=== PATIENT | male | born 1975 | race Hispanic/Latino ===

== ENCOUNTER 2017-02-23 19:57 | Emergency (ER) | payer OTHER ==
[2017-02-23 20:15] VITALS: TEMP 97.7; BMI 30.7
[2017-02-23] MEDS ORDERED: HYDROmorphone 1 mg/ml ISec IM STA (21:06)
[2017-02-23] MEDS ORDERED: HYDROmorphone 2 mg/ml ISec IM STA (21:08)
--- NOTE | 2017-02-23 21:31 | ED PDOC ---
Arrival/HPI - General Chief Complaint: Back Pain Time Seen by Provider: 02/23/17 20:41 Historian: Patient - History of Present Illness Narrative History of Present Illness (Text): 02/23/17 20:41 A 41 year old male, whose past medical history includes chronic neck pain, and chronic numbness to the bilateral upper extremities, presents to the emergency department complaining of "unbearably" neck pain for the past week. He notes he has been taking Oxycodone 30mg 4 times a day with no relief. He reports some numbness to the right side of the face for the past few days. Patient had a chronic neck injury which required the patient to get spinal fusion surgery from C3-C5 in 2011. Patient is also on Coumadin due to Aortic aneurysm and valve surgery in 2013. Patient notes an elevated blood pressure but denies any headache, dizziness, chest pain, shortness of breath, chest palpation, or other complaints at this time. PMD: Dr. Daquan Avelar Time/Duration: 1 week Symptom Onset: Sudden Symptom Course: Unchanged Quality: Other Activities at Onset: Rest Context: Home Past Medical History - Provider Review Nursing Documentation Reviewed: Yes - Infectious Disease Hx of Infectious Diseases: None - Cardiac Hx Cardiac Disorders: Yes Hx Hypertension: Yes Other/Comment: Oper Heart Surgery. Bicup. Aortic Valve Surgery - Pulmonary Hx Respiratory Disorders: No - Neurological Hx Neurological Disorder: Yes Other/Comment: pt had cervical neck fusion, neck still tingles, arms go numb, can't lie flat. Spine Fused C3 to C5 - HEENT Hx HEENT Disorder: No - Renal Hx Renal Disorder: No - Endocrine/Metabolic Hx Endocrine Disorders: No - Hematological/Oncological Hx Blood Disorders: Yes Other/Comment: lyme disease 2x's over the past 3 years - Integumentary Hx Dermatological Disorder: No - Musculoskeletal/Rheumatological Hx Musculoskeletal Disorders: Yes Hx Falls: Yes - Gastrointestinal Hx Gastrointestinal Disorders: No - Genitourinary/Gynecological Hx Genitourinary Disorders: No - Psychiatric Hx Psychophysiologic Disorder: No Hx Emotional Abuse: No Hx Physical Abuse: No Hx Substance Use: No - Surgical History Hx Open Heart Surgery: Yes (AAA) Hx Orthopedic Surgery: Yes (cervical neck fusion 05/2012) Hx Valve Replacement: Yes - Anesthesia Hx Anesthesia: Yes Hx Anesthesia Reactions: No Hx Malignant Hyperthermia: No - Suicidal Assessment Feels Threatened In Home Enviroment: No Family/Social History - Physician Review Nursing Documentation Reviewed: Yes Family/Social History: Unknown Family HX Smoking Status: Current Some Days Smoker Hx Alcohol Use: No Hx Substance Use: No Hx Substance Use Treatment: No Allergies/Home Meds Allergies/Adverse Reactions: Allergies metoclopramide HCl [From Reglan] Adverse Reaction (Verified 02/23/17 21:23) SHORTNESS OF BREATH Penicillins Adverse Reaction (Verified 02/23/17 21:23) ANAPHYLAXIS pregabalin [From Lyrica] Adverse Reaction (Verified 02/23/17 21:23) ITCHING valsartan [From Diovan] Adverse Reaction (Verified 02/23/17 21:23) SWELLING Home Medications: Home Meds Medication Instructions Recorded Confirmed Metoprolol Tartrate [Lopressor] 50 mg PO BID 07/11/16 07/11/16 Warfarin [Coumadin] 11 mg PO .6PM 07/11/16 07/11/16 oxyCODONE [oxyCODONE Immediate 30 mg PO QID PRN 07/11/16 07/11/16 Release Tab] Review of Systems - Physician Review All systems were reviewed & negative as marked: Yes - Review of Systems Respiratory: absent: SOB Cardiovascular: absent: Chest Pain, Palpitations Musculoskeletal: Neck Pain Neurological: Other (numbess to the bilateral upper extremities and right side of the face). absent: Headache, Dizziness Physical Exam Vital Signs Reviewed: Yes Vital Signs Temp Pulse Resp BP Pulse Ox 02/23/17 22:30 81 16 143/88 98 02/23/17 20:14 97.7 F 96 H 18 188/99 H 97 Temperature: Afebrile Blood Pressure: Normal Pulse: Regular Respiratory Rate: Normal Appearance: Positive for: Well-Appearing, Non-Toxic, Comfortable (sitting comfortable in bed) Pain Distress: Mild Mental Status: Positive for: Alert and Oriented X 3 - Systems Exam Head: Present: Atraumatic, Normocephalic Pupils: Present: PERRL Extroacular Muscles: Present: EOMI Conjunctiva: Present: Normal Mouth: Present: Moist Mucous Membranes Neck: Present: Normal Range of Motion, MIDLINE TENDERNESS Respiratory/Chest: Present: Clear to Auscultation, Good Air Exchange. No: Respiratory Distress, Accessory Muscle Use Cardiovascular: Present: Regular Rate and Rhythm, Normal S1, S2. No: Murmurs Abdomen: Present: Normal Bowel Sounds. No: Tenderness, Distention, Peritoneal Signs Back: Present: Normal Inspection Upper Extremity: Present: Normal Inspection. No: Cyanosis, Edema Lower Extremity: Present: Normal Inspection. No: Edema Neurological: Present: GCS=15, CN II-XII Intact, Speech Normal, Motor Func Grossly Intact, Normal Sensory Function Skin: Present: Warm, Dry, Normal Color. No: Rashes Psychiatric: Present: Alert, Oriented x 3, Normal Insight, Normal Concentration Medical Decision Making ED Course and Treatment: 02/23/17 20:41 Impression: A 41 year old male with acute on chronic neck pain. Differential Diagnosis include but are not limited to: acute on chronic neck pain Plan: -- Cervical Spine and Lateral X-ray -- Dilaudid, Flexeril and Zofran -- Reassess and disposition Prior Visits: Notes and results from previous visits were reviewed. The patient last presented to the emergency department on 07/11/16 for evaluation after a syncopal episode. Progress Notes: XR C spine: mild DJD, (+) spinal fusion noted, no fracture, no dislocation, as read by PA VS BP 143/88 P 81 O2sat 98%RA On reevaluation, patient is sitting comfortably in bed in no acute distress, reports mild improvement of pain, denies any headache, dizziness, chest pain, shortness of breath or any focal neurologic deficits at this time. Repeat neuro exam shows no focal findings. Patient medicated with dose of Toradol IM. Based on history, exam and diagnostic results plan will be for outpatient follow -up with PMD. Patient states he fully agrees with and understands discharge instructions. States that he agrees with the plan and disposition. Verbalized and repeated discharge instructions and plan. I have given the patient opportunity to ask any additional questions. Follow up with primary care physician in 1-2 days without fail. Return to the emergency room at any time for any new or worsening symptoms. - RAD Interpretation Radiology Orders: 02/23/17 21:06 CERVICAL SPINE AP & LATERAL [RAD] Stat - Medication Orders Current Medication Orders: Discontinued Medications Cyclobenzaprine HCl (Flexeril) 10 mg PO STAT STA Stop: 02/23/17 21:07 Last Admin: 02/23/17 21:37 Dose: 10 mg Hydromorphone HCl (Dilaudid) 2 mg IM STAT STA Stop: 02/23/17 21:09 Last Admin: 02/23/17 21:37 Dose: 2 mg Ketorolac Tromethamine (Toradol) 60 mg IM STAT STA Stop: 02/23/17 23:10 Last Admin: 02/23/17 23:22 Dose: 60 mg Ondansetron HCl (Zofran Odt) 4 mg PO STAT STA Stop: 02/23/17 21:07 Last Admin: 02/23/17 21:37 Dose: 4 mg - PA / ENERGY EFFICI[employer]Y FINANCE MANAGER / Resident Statement MD/DO has reviewed & agrees with the documentation as recorded. - Scribe Statement The provider has reviewed the documentation as recorded by the Scribe Jennifer Bo Provider Scribe Attestation: All medical record entries made by the Scribe were at my direction and personally dictated by me. I have reviewed the chart and agree that the record accurately reflects my personal performance of the history, physical exam, medical decision making, and the department course for this patient. I have also personally directed, reviewed, and agree with the discharge instructions and disposition. Disposition/Present on Arrival - Present on Arrival Any Indicators Present on Arrival: No History of DVT/PE: No History of Uncontrolled Diabetes: No Urinary Catheter: No History of Decub. Ulcer: No History Surgical Site Infection Following: None - Disposition Have Diagnosis and Disposition been Completed?: Yes Diagnosis: Chronic neck pain Disposition: HOME/ ROUTINE Disposition Time: 23:00 Patient Plan: Discharge Patient Problems: Current Active Problems Problem Status Onset Chronic neck pain Acute Condition: IMPROVED Discharge Instructions (ExitCare): Chronic Pain (ED) Print Language: EMIRATI Additional Instructions: Thank you for letting us take care of you today. You were treated for chronic neck pain. The emergency medical care you received today was directed at your acute symptoms. It may take several days for your symptoms to resolve. Return to the Emergency Department if your symptoms worsen, do not improve, or if you have any other problems. Please contact your doctor in 2 days for re-evaluation and follow up / or call one of the physicians. Bring any paperwork you were given at discharge with you along with any medications you are taking to your follow up visit. Our treatment cannot replace ongoing medical care by a primary care provider (PCP) outside of the emergency department. Thank you for allowing the [facility] team to be part of your care today. Referrals: [facility], [Primary Care Provider] - Follow up with primary Forms: WORK NOTE
[2017-02-23 22:39] VITALS: BP 143/88; PULSE 81; RESP 16; O2SAT 98
--- NOTE | 2017-02-24 10:58 | RAD ---
PROCEDURE: Cervical Spine Radiographs. HISTORY: Pain. COMPARISON: None. FINDINGS: BONES: Alignment maintained. No fracture. Dens Intact. DISC SPACES: There has been fusion at C4-5 and C5-6. SOFT TISSUES: Normal. No prevertebral soft tissue swelling. OTHER FINDINGS: None. IMPRESSION: No acute findings
== END 2017-02-24 00:01 | disposition home or self-care (01) ==
LOC: ED 19:57
DX: M54.2 Cervicalgia (principal); G89.29 Other chronic pain; I10 Essential (primary) hypertension; Z72.0 Tobacco use
CPT/HCPCS: 72040; 96372; 99282; J1170; J1885

== ENCOUNTER 2017-03-20 11:25 | Inpatient (IN) | payer OTHER ==
[2017-03-20 11:28] VITALS: BMI 29.9
--- NOTE | 2017-03-20 12:06 | ED PDOC ---
Arrival/HPI - General Chief Complaint: Fever Time Seen by Provider: 03/20/17 11:37 Historian: Patient - History of Present Illness Narrative History of Present Illness (Text): 03/20/17 12:11 A 41 year old male, whose past medical history includes aortic valve replacement (in 2013) and aortic aneurysm repair, presents to the emergency department complaining of a fever up to 103, sweating and chills for the past two days. Patient reports taking Advil. There is no clear source of fever. Patient takes Coumadin and Oxycodone daily for pain. Reports he had a dental abscess 3 months ago, which resolved with antibiotics. Denies any recent procedures. Patient denies any cough, shortness of breath, chest pain, diarrhea , dysuria, sore throat or any other complaints at this time. Patient also denies any drug use. Time/Duration: Other (2 days) Symptom Onset: Sudden Symptom Course: Unchanged Activities at Onset: Rest Context: Home Past Medical History - Provider Review Nursing Documentation Reviewed: Yes - Infectious Disease Hx of Infectious Diseases: None - Cardiac Hx Cardiac Disorders: Yes Hx Hypertension: Yes Other/Comment: Open Heart Surgery. Bicup. Aortic Valve Surgery - Pulmonary Hx Respiratory Disorders: No - Neurological Hx Neurological Disorder: Yes Other/Comment: pt had cervical neck fusion, neck still tingles, arms go numb, can't lie flat. Spine Fused C3 to C5 - HEENT Hx HEENT Disorder: No - Renal Hx Renal Disorder: No - Endocrine/Metabolic Hx Endocrine Disorders: No - Hematological/Oncological Hx Blood Disorders: Yes Other/Comment: lyme disease 2x's over the past 3 years - Integumentary Hx Dermatological Disorder: No - Musculoskeletal/Rheumatological Hx Musculoskeletal Disorders: Yes Hx Falls: Yes - Gastrointestinal Hx Gastrointestinal Disorders: No - Genitourinary/Gynecological Hx Genitourinary Disorders: No - Psychiatric Hx Psychophysiologic Disorder: No Hx Emotional Abuse: No Hx Physical Abuse: No Hx Substance Use: No - Surgical History Hx Open Heart Surgery: Yes (AAA) Hx Orthopedic Surgery: Yes (cervical neck fusion 05/2012) Hx Valve Replacement: Yes - Anesthesia Hx Anesthesia: Yes Hx Anesthesia Reactions: No Hx Malignant Hyperthermia: No - Suicidal Assessment Feels Threatened In Home Enviroment: No Family/Social History - Physician Review Nursing Documentation Reviewed: Yes Family/Social History: No Known Family HX Smoking Status: Light Smoker < 10 Cigarettes Daily Hx Alcohol Use: No Hx Substance Use: No Hx Substance Use Treatment: No Allergies/Home Meds Allergies/Adverse Reactions: Allergies metoclopramide HCl [From Reglan] Adverse Reaction (Verified 03/20/17 11:28) SHORTNESS OF BREATH Penicillins Adverse Reaction (Verified 03/20/17 11:28) ANAPHYLAXIS pregabalin [From Lyrica] Adverse Reaction (Verified 03/20/17 11:28) ITCHING valsartan [From Diovan] Adverse Reaction (Verified 03/20/17 11:28) SWELLING Home Medications: Home Meds Medication Instructions Recorded Confirmed Metoprolol Tartrate [Lopressor] 50 mg PO BID 07/11/16 03/20/17 Warfarin [Coumadin] 10 mg PO DAILY 07/11/16 03/20/17 oxyCODONE [oxyCODONE Immediate 30 mg PO QID PRN 07/11/16 03/20/17 Release Tab] Review of Systems - Physician Review All systems were reviewed & negative as marked: Yes - Review of Systems Constitutional: Fevers, Other (chills) ENT: absent: Sore Throat Respiratory: absent: SOB, Cough Cardiovascular: absent: Chest Pain Gastrointestinal: absent: Diarrhea Genitourinary Male: absent: Dysuria Endocrine: Diaphoresis Physical Exam Vital Signs Reviewed: Yes Vital Signs Temp Pulse Resp BP Pulse Ox 03/20/17 11:32 98.0 F 98 H 19 110/73 95 Temperature: Afebrile Blood Pressure: Normal Pulse: Regular Respiratory Rate: Normal Appearance: Positive for: Well-Appearing, Non-Toxic, Comfortable, Other ( diaphoretic) Pain Distress: None Mental Status: Positive for: Alert and Oriented X 3 - Systems Exam Head: Present: Atraumatic, Normocephalic Pupils: Present: PERRL Extroacular Muscles: Present: EOMI Conjunctiva: Present: Normal Mouth: Present: Moist Mucous Membranes Neck: Present: Normal Range of Motion Respiratory/Chest: Present: Clear to Auscultation, Good Air Exchange. No: Respiratory Distress, Accessory Muscle Use Cardiovascular: Present: Regular Rate and Rhythm, Normal S1, S2, Other (cardiac audible click ). No: Murmurs Abdomen: Present: Normal Bowel Sounds. No: Tenderness, Distention, Peritoneal Signs Back: Present: Normal Inspection Upper Extremity: Present: Normal Inspection. No: Cyanosis, Edema Lower Extremity: Present: Normal Inspection. No: Edema Neurological: Present: GCS=15, CN II-XII Intact, Speech Normal Skin: Present: Warm, Dry, Normal Color. No: Rashes Psychiatric: Present: Alert, Oriented x 3, Normal Insight, Normal Concentration Medical Decision Making ED Course and Treatment: 03/20/17 12:45 EKG: Ordered, reviewed, and independently interpreted the EKG. Rate : 87 BPM Rhythm : NSR Interpretation : Normal axis, Normal intervals, No STEMI Comparison : Appears similar to prior EKG from 07/11/16 chest xray Creator : Anna Miller MD 03/20/2017 12:49 IMPRESSION: No focal consolidation, significant pleural effusion, or definite pneumothorax identified. 03/20/17 13:[address] Majano, who will admit patient. She requests patient be given Azactam and Vancomycin. Abdomen US Creator : Anna Miller MD 03/20/2017 14:29 FINDINGS: LIVER: Measures 16.5 cm in sagittal dimension. Echogenic liver may be seen in setting of hepatic parenchymal disease or fatty infiltration. No focal hepatic mass identified. The main portal vein appears patent with normal directional flow. No intrahepatic bile duct dilatation. GALLBLADDER: No gallstones. No gallbladder wall thickening. Negative sonographic Matamoros's sign as assessed by the technical intern. COMMON BILE DUCT: Measures 6 mm. No stones. No dilatation. PANCREAS: Not well visualized. RIGHT KIDNEY: Measures 11.4 x 4.3 x 5.5cm. No obstructing calculus or hydronephrosis identified. LEFT KIDNEY: Measures 11.3 x 5.6 x 5.5cm. No obstructing calculus or hydronephrosis identified. SPLEEN: Measures approximately 11.3 cm. AORTA: Limited views appear unremarkable. IVC: Limited views appear unremarkable. IMPRESSION: Echogenic liver may be seen in setting of hepatic parenchymal disease or fatty infiltration. - Lab Interpretations Microbiology Results: Microbiology Results 03/20/17 12:00 Blood-Venous S.aureus & Coag-Neg Staph PNA FISH - Final 03/20/17 12:00 Blood-Venous Blood Culture - Final Streptococcus Pneumoniae 03/20/17 12:00 Blood-Venous Gram Stain - Final 03/20/17 12:20 Blood-Venous Blood Culture - Final Streptococcus Pneumoniae 03/20/17 12:20 Blood-Venous Gram Stain - Final 03/20/17 13:47 Urine Urine Culture - Final No Growth (<1,000 CFU/ML) Lab Results: 03/21/17 06:30 03/21/17 06:30 Lab Results 03/21/17 06:30: Sodium 139, Chloride 102, Potassium 3.9, Carbon Dioxide 30, Anion Gap 11, BUN 18, Creatinine 1.0, Est GFR ( Amer) > 60, Est GFR (Non- Af Amer) > 60, Random Glucose 85, Calcium 9.0, Total Bilirubin 0.7, AST 44, ALT 66 H, Alkaline Phosphatase 138 H, Total Protein 7.0, Albumin 3.5, Globulin 3.5, Albumin/Globulin Ratio 1.0 L 03/21/17 06:30: WBC 10.5, RBC 3.64, Hgb 10.4 L, Hct 31.9 L, MCV 87.6, MCH 28.6, MCHC 32.6, RDW 14.9 H, Plt Count 291, MPV 10.4, Gran % 69.9 H, Lymph % (Auto) 16.1 L, Tillman % (Auto) 11.8 H, Eos % (Auto) 1.9, Baso % (Auto) 0.3, Gran # 7.35 H , Lymph # 1.7, Tillman # 1.2 H, Eos # 0.2, Baso # 0.03 03/20/17 14:20: C-React Prot High Sens > 15.00 H 03/20/17 14:20: ESR 62 H 03/20/17 13:47: Urine Color Yellow, Urine Appearance Clear, Urine pH 6.0, Ur Specific [place] >= 1.030, Urine Protein 100 H, Urine Glucose (UA) Negative, Urine Ketones Negative, Urine Blood Small H, Urine Nitrate Negative, Urine Bilirubin Small H, Urine Urobilinogen 1.0 H, Ur Leukocyte Esterase Negative, Urine RBC 5 - 10, Urine WBC 0 - 2, Ur Epithelial Cells 0 - 2, Amorphous Sediment Few, Urine Bacteria Mod, Coarse Granular Casts Trace H, Urine Other Fiber 03/20/17 13:09: Influenza Typ A,B (EIA) Negative for flu a/b 03/20/17 12:20: Sodium 135, Chloride 101, Potassium 3.8, Carbon Dioxide 28, Anion Gap 10, BUN 21, Creatinine 1.3, Est GFR ( Amer) > 60, Est GFR (Non- Af Amer) > 60, Random Glucose 125 H, Calcium 8.8, Total Bilirubin 0.8, AST 68 H , ALT 70 H, Alkaline Phosphatase 146 H, Troponin I < 0.01, NT-Pro-B Natriuret Pep 1420 H, Total Protein 7.7, Albumin 3.8, Globulin 3.9, Albumin/Globulin Ratio 1.0 L 03/20/17 12:20: PT 45.5 H*, INR 4.21 H* 03/20/17 12:20: WBC 11.4 H, RBC 3.84, Hgb 11.2 L, Hct 33.2 L, MCV 86.5, MCH 29.2 , MCHC 33.7, RDW 14.6 H, Plt Count 295, MPV 10.5, Gran % 80.4 H, Lymph % (Auto) 9.7 L, Tillman % (Auto) 9.3 H, Eos % (Auto) 0.3 L, Baso % (Auto) 0.3, Gran # 9.14 H , Lymph # 1.1 L, Tillman # 1.1 H, Eos # 0.0, Baso # 0.03 03/20/17 12:20: pO2 164 H, VBG pH 7.39, VBG pCO2 44.0, VBG HCO3 26.6, VBG Total CO2 28.0, VBG O2 Sat (Calc) 98.8 H, VBG Base Excess 1.2, VBG Potassium 3.8, Sodium 135.0, Chloride 105.0, Glucose 137 H, Lactate 0.8, FiO2 21.0, Venous Blood Potassium 3.8 I have reviewed the lab results: Yes - RAD Interpretation Radiology Orders: 03/20/17 11:56 CHEST TWO VIEWS (PA/LAT) [RAD] Stat 03/20/17 13:24 ABDOMEN COMPLETE [US] Urgent - EKG Interpretation Interpreted by ED Physician: Yes Type: 12 lead EKG - Medication Orders Current Medication Orders: Acetaminophen (Tylenol 325mg Tab) 650 mg PO Q4H PRN PRN Reason: Fever >100.4 F Last Admin: 03/23/17 01:50 Dose: 650 mg Re-Assess: MAR Pain/Vitals Document 03/23/17 02:50 KP (Rec: 03/23/17 03:02 KP [id number]) Pain Reassessment Is This A Pain ReAssessment? Yes Sleep Is patient sleeping during reassessment? Yes Enoxaparin Sodium (Lovenox) 80 mg SC Q12H ZEE PRN Reason: Protocol Last Admin: 03/25/17 11:12 Dose: 80 mg Meropenem 1g/NS 100mL IVPB (Meropenem 1g/Ns 100ml Ivpb) 1 gm in 100 mls @ 100 mls/hr IVPB Q8 ZEE PRN Reason: Protocol Stop: 04/02/17 09:29 Last Admin: 03/25/17 10:53 Dose: 100 mls/hr Metoprolol Tartrate (Lopressor) 50 mg PO BID ZEE Last Admin: 03/25/17 10:54 Dose: 50 mg Oxycodone HCl (Oxycodone Immediate Release Tab) 30 mg PO Q4 PRN PRN Reason: Pain, moderate (4-7) Last Admin: 03/25/17 06:09 Dose: 30 mg Zolpidem Tartrate (Ambien) 10 mg PO HS ZEE PRN Reason: Protocol Last Admin: 03/24/17 23:28 Dose: 10 mg Re-Assess: Reassess Psych Meds Document 03/25/17 00:28 [facility] (Rec: 03/25/17 00:47 [id number]) Reassess Psych Med Effective Discontinued Medications Barium Sulfate (Readi-Cat 2) Confirm Administered Dose 900 ml PO .STK-MED ONE Stop: 03/21/17 12:16 Enoxaparin Sodium (Lovenox) Confirm Administered Dose 60 mg .ROUTE .STK-MED ONE Stop: 03/25/17 10:46 Last Admin: 03/25/17 11:13 Dose: Enoxaparin Sodium (Lovenox) Confirm Administered Dose 80 mg .ROUTE .STK-MED ONE Stop: 03/25/17 11:12 Fentanyl (Fentanyl) Confirm Administered Dose 200 mcg .ROUTE .STK-MED ONE Stop: 03/24/17 11:56 Fentanyl (Fentanyl) 50 mcg IVP .STK-MED ONE Stop: 03/24/17 12:01 Last Admin: 03/24/17 12:00 Dose: 50 mcg Fentanyl (Fentanyl) 50 mcg IVP .STK-MED ONE Stop: 03/24/17 12:04 Last Admin: 03/24/17 12:03 Dose: 50 mcg Fentanyl (Fentanyl) 50 mcg IVP .STK-MED ONE Stop: 03/24/17 12:19 Last Admin: 03/24/17 12:18 Dose: 50 mcg Fentanyl (Fentanyl) 50 mcg IVP .STK-MED ONE Stop: 03/24/17 12:21 Last Admin: 03/24/17 12:20 Dose: 50 mcg Flumazenil (Romazicon) Confirm Administered Dose 0.5 mg IVP .STK-MED ONE Stop: 03/24/17 11:56 Last Admin: 03/24/17 12:35 Dose: Aztreonam (Azactam 2 Gm) 100 mls @ 100 mls/hr IVPB STAT STA PRN Reason: Protocol Stop: 03/20/17 14:07 Last Admin: 03/20/17 14:00 Dose: 100 mls/hr Vancomycin HCl 1,220 mg/ (Sodium Chloride) 250 mls @ 166.667 mls/hr IV STAT STA Stop: 03/20/17 14:42 Last Admin: 03/20/17 15:00 Dose: 166.667 mls/hr Aztreonam (Azactam 1 Gm) 100 mls @ 100 mls/hr IVPB Q8 ZEE PRN Reason: Protocol Stop: 03/27/17 22:01 Last Admin: 03/22/17 06:08 Dose: 100 mls/hr Vancomycin HCl (Vancomycin 1gm) 1 gm in 250 mls @ 167 mls/hr IVPB Q12 ZEE PRN Reason: Protocol Last Admin: 03/21/17 09:36 Dose: 167 mls/hr Daptomycin 490 mg/ Sodium (Chloride) 100 mls @ 200 mls/hr IV Q24H ZEE Stop: 03/26/17 12:01 Last Admin: 03/24/17 14:15 Dose: 200 mls/hr Sodium Chloride (Sodium Chloride 0.9%) 1,000 mls @ 50 mls/hr IV .Q20H ZEE Stop: 03/24/17 14:00 Last Admin: 03/24/17 17:17 Dose: 50 mls/hr Meropenem 1g/NS 100mL IVPB (Meropenem 1g/Ns 100ml Ivpb) Confirm Administered Dose 1 gm in 100 mls @ ud IVPB .STK-MED ONE Stop: 03/25/17 10:46 Last Admin: 03/25/17 11:13 Dose: Lidocaine HCl (Lidocaine 2% Viscous) Confirm Administered Dose 30 ml .ROUTE .STK -MED ONE Stop: 03/24/17 11:41 Last Admin: 03/24/17 11:55 Dose: 30 ml Lidocaine HCl (Lidocaine 2% Viscous) Confirm Administered Dose 30 ml .ROUTE .STK -MED ONE Stop: 03/24/17 12:17 Last Admin: 03/24/17 12:17 Dose: 30 ml Metoprolol Tartrate (Lopressor) Confirm Administered Dose 50 mg .ROUTE .STK-MED ONE Stop: 03/25/17 10:45 Last Admin: 03/25/17 11:13 Dose: Midazolam HCl (Versed Inj) Confirm Administered Dose 4 mg .ROUTE .STK-MED ONE Stop: 03/24/17 11:56 Midazolam HCl (Versed Inj) Confirm Administered Dose 2 mg .ROUTE .STK-MED ONE Stop: 03/24/17 12:24 Last Admin: 03/24/17 12:35 Dose: Midazolam HCl (Versed Inj) 1 mg IV .STK-MED ONE Stop: 03/24/17 12:01 Last Admin: 03/24/17 12:00 Dose: 1 mg Midazolam HCl (Versed Inj) 1 mg IV .STK-MED ONE Stop: 03/24/17 12:03 Last Admin: 03/24/17 12:02 Dose: 1 mg Midazolam HCl (Versed Inj) 1 mg IV .STK-MED ONE Stop: 03/24/17 12:07 Last Admin: 03/24/17 12:06 Dose: 1 mg Midazolam HCl (Versed Inj) 0.5 mg IV .STK-MED ONE Stop: 03/24/17 12:08 Last Admin: 03/24/17 12:07 Dose: 0.5 mg Midazolam HCl (Versed Inj) 0.5 mg IV .STK-MED ONE Stop: 03/24/17 12:09 Last Admin: 03/24/17 12:08 Dose: 0.5 mg Naloxone HCl (Narcan) Confirm Administered Dose 0.4 mg .ROUTE .STK-MED ONE Stop: 03/24/17 11:57 Last Admin: 03/24/17 12:35 Dose: Oxycodone HCl (Oxycodone Immediate Release Tab) 15 mg PO QID PRN PRN Reason: Pain, moderate (4-7) Oxycodone HCl (Oxycodone Immediate Release Tab) 15 mg PO QID PRN PRN Reason: Pain, moderate (4-7) Last Admin: 03/20/17 18:48 Dose: 15 mg Oxycodone HCl (Oxycodone Immediate Release Tab) 30 mg PO QID PRN PRN Reason: Pain, moderate (4-7) Last Admin: 03/21/17 15:30 Dose: 30 mg Re-Assess: RABIA Pain Assessment Document 03/21/17 16:30 MCV (Rec: 03/21/17 19:55 MCV [id number]) Pain Reassessment Is this a pain reassessment? Yes Sleep Is patient sleeping during reassessment? Yes Pain Scale Used Pain Scale Used Rafael Oxycodone HCl (Oxycodone Immediate Release Tab) Confirm Administered Dose 30 mg .ROUTE .STK-MED ONE Stop: 03/25/17 10:46 Last Admin: 03/25/17 10:49 Dose: 30 mg - Scribe Statement The provider has reviewed the documentation as recorded by the Selina Shahid Provider Scribe Attestation: All medical record entries made by the Scribe were at my direction and personally dictated by me. I have reviewed the chart and agree that the record accurately reflects my personal performance of the history, physical exam, medical decision making, and the department course for this patient. I have also personally directed, reviewed, and agree with the discharge instructions and disposition. Disposition/Present on Arrival - Present on Arrival Any Indicators Present on Arrival: No History of DVT/PE: No History of Uncontrolled Diabetes: No Urinary Catheter: No History of Decub. Ulcer: No History Surgical Site Infection Following: None - Disposition Have Diagnosis and Disposition been Completed?: Yes Diagnosis: Status post aortic valve replacement with prosthetic valve, Fever Disposition: HOSPITALIZED Disposition Time: 13:09 Condition: STABLE
[2017-03-20 12:31] LABS: ADD MANUAL DIFF? NO
[2017-03-20 12:36] LABS: VENOUS BLOOD GAS BASE EXCESS 1.2 mmol/L (0.0-2.0); VENOUS BLOOD PH 7.39 (7.32-7.43)
[2017-03-20 12:39] LABS: BASO # 0.03 K/mm3 (0.0-2.0); BASO % 0.3 % (0.0-3.0); EOS % 0.3 % (1.5-5.0); GRAN # 9.14 (1.4-6.5); GRAN % 80.4 % (50.0-68.0); HEMATOCRIT 33.2 % (42.0-52.0); LYMPH # 1.1 (1.2-3.4); LYMPH % 9.7 % (22.0-35.0); MEAN CELL VOLUME 86.5 fL (80.0-105.0); MEAN CORPUSCULAR HEMOGLOBIN 29.2 pg (25.0-35.0); MEAN CORPUSCULAR HGB CONC 33.7 g/dl (31.0-37.0); MEAN PLATELET VOLUME 10.5 fl (7.0-11.0); MONO # 1.1 (0.1-0.6); MONO % 9.3 % (1.0-6.0); PLATELET COUNT 295 10^3/uL (120.0-450.0); RED CELL DISTRIBUTION WIDTH 14.6 % (11.5-14.5); WHITE BLOOD COUNT 11.4 10^3/ul (4.5-11.0)
[2017-03-20 12:44] LABS: ALKALINE PHOSPHATASE 146 U/L (38-133); ALT/SGPT 70 U/L (7-56); AST/SGOT 68 U/L (15-59); BILIRUBIN,TOTAL 0.8 mg/dL (0.2-1.3); BLOOD UREA NITROGEN 21 mg/dL (7-21); CALCIUM 8.8 mg/dL (8.4-10.5); CARBON DIOXIDE 28 mmol/L (21-33); CHLORIDE 101 mmol/L (98-107); GFR AFRICAN-AMERICAN > 60; GLUCOSE,RANDOM 125 mg/dL (70-110); POTASSIUM 3.8 mmol/L (3.6-5.0); SODIUM 135 mmol/L (132-148); TOTAL PROTEIN 7.7 g/dL (5.8-8.3)
--- NOTE | 2017-03-20 12:46 | RAD ---
HISTORY: fever COMPARISON: Chest x-ray performed 07/11/16 TECHNIQUE: Chest PA and lateral FINDINGS: Examination limited by habitus. LUNGS: Mild biapical pleural thickening. No focal consolidation. Please note that chest x-ray has limited sensitivity for the detection of pulmonary masses. PLEURA: No significant pleural effusion identified. No definite pneumothorax . CARDIOVASCULAR: Median sternotomy wires. Mild cardiomegaly. OSSEOUS STRUCTURES: Partially imaged cervical fusion hardware. VISUALIZED UPPER ABDOMEN: Unremarkable. OTHER FINDINGS: None. IMPRESSION: No focal consolidation, significant pleural effusion, or definite pneumothorax identified.
[2017-03-20 13:04] LABS: INR 4.21 (0.93-1.08)
[2017-03-20 13:06] LABS: TROPONIN I < 0.01 ng/mL
[2017-03-20] MEDS ORDERED: Vancomycin 500 mg Inj IVPB STA (13:08)
[2017-03-20] MEDS ORDERED: Aztreonam 2 Gm in NS 100mL 100 ML IVPB STA (13:08)
[2017-03-20] MEDS ORDERED: SODIUM CHLORIDE 0.9% IV STA (13:13)
[2017-03-20] MEDS ORDERED: VANCOMYCIN IV STA (13:13)
[2017-03-20] MEDS ORDERED: oxyCODONE 30 mg Immediate Release Tab PO PRN (13:20)
[2017-03-20 13:51] LABS: URINE BILIRUBIN SMALL (NEGATIVE); URINE BLOOD SMALL (NEGATIVE); URINE GLUCOSE (UA) NEGATIVE (NEGATIVE); URINE KETONE NEGATIVE (NEGATIVE); URINE LEUKOCYTE ESTERASE NEGATIVE Leu/uL (NEGATIVE); URINE PROTEIN 100 mg/dL (<30 mg/dL)
[2017-03-20 13:54] LABS: URINE APPEARANCE CLEAR (CLEAR); URINE COLOR YELLOW (YELLOW)
[2017-03-20 14:26] LABS: URINE AMORPHOUS SEDIMENT FEW; URINE BACTERIA MOD (NEG); URINE EPITHELIAL CELLS 0 - 2 /hpf (0-5); URINE WBC 0 - 2 /hpf (0-6)
--- NOTE | 2017-03-20 14:32 | US ---
HISTORY: abnormal LFT COMPARISON: CT of the abdomen and pelvis without oral or IV contrast performed 08/11/15 TECHNIQUE: Sonographic evaluation of the abdomen. FINDINGS: LIVER: Measures 16.5 cm in sagittal dimension. Echogenic liver may be seen in setting of hepatic parenchymal disease or fatty infiltration. No focal hepatic mass identified. The main portal vein appears patent with normal directional flow. No intrahepatic bile duct dilatation. GALLBLADDER: No gallstones. No gallbladder wall thickening. Negative sonographic Matamoros's sign as assessed by the filter bed placer. COMMON BILE DUCT: Measures 6 mm. No stones. No dilatation. PANCREAS: Not well visualized. RIGHT KIDNEY: Measures 11.4 x 4.3 x 5.5cm. No obstructing calculus or hydronephrosis identified. LEFT KIDNEY: Measures 11.3 x 5.6 x 5.5cm. No obstructing calculus or hydronephrosis identified. SPLEEN: Measures approximately 11.3 cm. AORTA: Limited views appear unremarkable. IVC: Limited views appear unremarkable. OTHER FINDINGS: None. IMPRESSION: Echogenic liver may be seen in setting of hepatic parenchymal disease or fatty infiltration.
[2017-03-20] MEDS: oxyCODONE 15 mg Immediate Release Tab PO PRN ×2 (14:56→18:48)
--- NOTE | 2017-03-20 17:59 | HP ---
HISTORY OF PRESENT ILLNESS: The patient is a 41-year-old white male who came to Emergency Room [facility] of3 days' history of fever. He stated he is having chills. He does not have any upper respirator y symptoms including runny or stuffy nose, cough or congestion. He does not have any urinary symptom s. He does not having any abdominal pain. No diarrhea. No nausea. PAST MEDICAL HISTORY: Is significant for aortic valve replacement secondary to stenosis and that was in 2013; it was first diagnosed in 2009. He also has a history of chronic back pain, status post ce rvical disk fusion. ALLERGIES: HE IS ALLERGIC TO METOCLOPRAMIDE, PENICILLIN, PREGABALIN AND VALSARTAN. MEDICATIONS AT HOME: He is on Coumadin 10 mg daily, metoprolol 50 mg twice a day and Percocet. SOCIAL HISTORY: He is currently disabled. He used to be a heavy smoker, but now he smokes 3-4 cigar ettes a day. and has grown up children. REVIEW OF SYSTEMS: Significant for generalized weakness, intermittent fever. PHYSICAL EXAMINATION: GENERAL: He is awake and alert and communicative. VITAL SIGNS: He is afebrile, pulse 98, respirations 19, blood pressure 110/73. LUNGS: Bilateral fair airflow, no rhonchi or crackle. HEART: S1, S2 audible with positive click. ABDOMEN: Soft, nontender, no rebound, no guarding. NEUROLOGIC: He is awake and alert and able to communicate. LABORATORY DATA: WBC 11.4, hemoglobin 11.4, hematocrit 33.2, platelet 295. PT 45.5, INR 4.21. Chem istry: Sodium 135, potassium 3.8, chloride 101, CO2 of 28, BUN 21, creatinine 1.3, blood sugar 125, AST 68, ALT 70, alkaline phosphatase is 146. BNP 1420. ASSESSMENT AND PLAN: 1. Fever, etiology unclear. 2. Abnormal liver function tests. Rule out cholecystitis. 3. Status post aortic valve replacement in 2013, rule out endocarditis. 4. Chronic degenerative disk disease. PLAN: The patient will be admitted. Blood culture and urine culture will be sent. I will order for abdominal sonogram. Will start him on Azactam and vancomycin. ID consult by Dr. Chahal will be requested and I will follow up his CBC, blood cultures and sonogram in a.m. Kolby Majano MD cc: [phone] TT: 03/20/2017 17:59:18 dn
[2017-03-20] MEDS: Aztreonam 1 Gm in NS 100mL 100 ML IVPB SCH (21:01)
[2017-03-20] MEDS: oxyCODONE 30 mg Immediate Release Tab PO PRN (21:11)
--- NOTE | 2017-03-20 21:51 | CARD ---
APPROVED REPORT EKG Measurement Heart [id number] <Conclusion> Normal sinus rhythm Possible Left atrial enlargement RSR' or QR pattern in V1 suggests right ventricular conduction delay Septal infarct, age undetermined Abnormal ECG
[2017-03-20] MEDS: Vancomycin 1gm in NS 250ml 1 GM/250 ML BAG IVPB SCH (21:57)
[2017-03-21] MEDS: oxyCODONE 30 mg Immediate Release Tab PO PRN ×4 (03:33→20:49)
[2017-03-21] MEDS: Aztreonam 1 Gm in NS 100mL 100 ML IVPB SCH ×3 (06:05→22:10)
[2017-03-21 07:08] LABS: ADD MANUAL DIFF? NO
[2017-03-21 07:21] LABS: BASO # 0.03 K/mm3 (0.0-2.0); BASO % 0.3 % (0.0-3.0); EOS # 0.2 (0.0-0.7); EOS % 1.9 % (1.5-5.0); GRAN # 7.35 (1.4-6.5); GRAN % 69.9 % (50.0-68.0); HEMATOCRIT 31.9 % (42.0-52.0); LYMPH # 1.7 (1.2-3.4); LYMPH % 16.1 % (22.0-35.0); MEAN CELL VOLUME 87.6 fL (80.0-105.0); MEAN CORPUSCULAR HEMOGLOBIN 28.6 pg (25.0-35.0); MEAN CORPUSCULAR HGB CONC 32.6 g/dl (31.0-37.0); MEAN PLATELET VOLUME 10.4 fl (7.0-11.0); MONO # 1.2 (0.1-0.6); MONO % 11.8 % (1.0-6.0); PLATELET COUNT 291 10^3/uL (120.0-450.0); RED CELL DISTRIBUTION WIDTH 14.9 % (11.5-14.5); WHITE BLOOD COUNT 10.5 10^3/ul (4.5-11.0)
[2017-03-21 07:28] LABS: ALKALINE PHOSPHATASE 138 U/L (38-133); ALT/SGPT 66 U/L (7-56); AST/SGOT 44 U/L (15-59); BILIRUBIN,TOTAL 0.7 mg/dL (0.2-1.3); BLOOD UREA NITROGEN 18 mg/dL (7-21); CARBON DIOXIDE 30 mmol/L (21-33); CHLORIDE 102 mmol/L (95-110); GFR AFRICAN-AMERICAN > 60; GLUCOSE,RANDOM 85 mg/dL (70-110); POTASSIUM 3.9 mmol/L (3.6-5.0); SODIUM 139 mmol/L (132-148)
[2017-03-21] MEDS: Vancomycin 1gm in NS 250ml 1 GM/250 ML BAG IVPB SCH (09:36)
--- NOTE | 2017-03-21 11:56 | CP.PCM.CON ---
History of Present Illness - History of Present Illness History of Present Illness: 41 year old male with PMH of aortic valve replacement in 2013 with aortic aneurysm repair (open heart surgery), S/P cervical neck fusion C3-C5, history of lyme disease, came in to [facility] complaining of fevers for the past 3 days with chills. He denies headache or dizziness, had some vague chest discomfort, no SOB, no cough or rhinorrhea, no nausea or vomiting, no abdominal pain, no joint aches, no dysuria, no hematuria, no diarrhea. The patient denies travel outside of [place] in the past 3 months, no travel to wooded areas or bodies of water, denies animal contacts, no insect bites. Denies ill contacts as well. Infectious diseases consult is requested to further evaluate and manage. Review of Systems - Review of Systems All systems: reviewed and no additional remarkable complaints except (as per HPI ) Past Patient History - Infectious Disease Hx of Infectious Diseases: None - Past Social History Smoking Status: Light Smoker < 10 Cigarettes Daily - CARDIAC Hx Cardiac Disorders: Yes Hx Hypertension: Yes Other/Comment: Open Heart Surgery. Bicup. Aortic Valve Surgery - PULMONARY Hx Respiratory Disorders: No - NEUROLOGICAL Hx Neurological Disorder: Yes Other/Comment: pt had cervical neck fusion, neck still tingles, arms go numb, can't lie flat. Spine Fused C3 to C5 - HEENT Hx HEENT Problems: No - RENAL Hx Chronic Kidney Disease: No - ENDOCRINE/METABOLIC Hx Endocrine Disorders: No - HEMATOLOGICAL/ONCOLOGICAL Hx Blood Disorders: Yes Other/Comment: lyme disease 2x's over the past 3 years - INTEGUMENTARY Hx Dermatological Problems: No - MUSCULOSKELETAL/RHEUMATOLOGICAL Hx Musculoskeletal Disorders: Yes Hx Falls: Yes - GASTROINTESTINAL Hx Gastrointestinal Disorders: No - GENITOURINARY/GYNECOLOGICAL Hx Genitourinary Disorders: No - PSYCHIATRIC Hx Psychophysiologic Disorder: No Hx Emotional Abuse: No Hx Physical Abuse: No Hx Substance Use: No - SURGICAL HISTORY Hx Open Heart Surgery: Yes ([facility]) Hx Orthopedic Surgery: Yes (cervical neck fusion 05/2012) Hx Valve Replacement: Yes - ANESTHESIA Hx Anesthesia: Yes Hx Anesthesia Reactions: No Hx Malignant Hyperthermia: No Meds Allergies/Adverse Reactions: Allergies Allergy/AdvReac Type Severity Reaction Status Date / Time metoclopramide HCl AdvReac SHORTNESS Verified 03/20/17 11:28 [From Reglan] OF BREATH Penicillins AdvReac ANAPHYLAXIS Verified 03/20/17 11:28 pregabalin [From Lyrica] AdvReac ITCHING Verified 03/20/17 11:28 valsartan [From Diovan] AdvReac SWELLING Verified 03/20/17 11:28 - Medications Medications: Current Medications Vancomycin HCl 1,220 mg/ (Sodium Chloride) 250 mls @ 166.667 mls/hr IV STAT STA Stop: 03/20/17 14:42 Aztreonam (Azactam 1 Gm) 100 mls @ 100 mls/hr IVPB Q8 ZEE PRN Reason: Protocol Stop: 03/27/17 22:01 Vancomycin HCl (Vancomycin 1gm) 1 gm in 250 mls @ 167 mls/hr IVPB Q12 ZEE PRN Reason: Protocol Metoprolol Tartrate (Lopressor) 50 mg PO BID ZEE Oxycodone HCl (Oxycodone Immediate Release Tab) 15 mg PO QID PRN PRN Reason: Pain, moderate (4-7) Physical Exam - Constitutional Appears: Non-toxic, No Acute Distress - Head Exam Head Exam: NORMAL INSPECTION - Neck Exam Neck exam: Negative for: Meningismus - Respiratory Exam Respiratory Exam: Decreased Breath Sounds - Cardiovascular Exam Cardiovascular Exam: +S1, +S2 - GI/Abdominal Exam GI & Abdominal Exam: Soft. absent: Tenderness Results - Vital Signs Recent Vital Signs: Last Vital Signs Temp 98.0 F 03/20/17 11:32 Pulse 98 H 03/20/17 11:32 Resp 19 03/20/17 11:32 BP 110/73 03/20/17 11:32 Pulse Ox 95 03/20/17 11:32 - Labs Result Diagrams: 03/21/17 06:30 03/21/17 06:30 Labs: Laboratory Results - last 24 hr 03/20/17 13:47 Urine Color Yellow Urine Appearance Clear Urine pH 6.0 Ur Specific [place] >= 1.030 Urine Protein 100 H Urine Glucose (UA) Negative Urine Ketones Negative Urine Blood Small H Urine Nitrate Negative Urine Bilirubin Small H Urine Urobilinogen 1.0 H Ur Leukocyte Esterase Negative Assessment & Plan - Assessment and Plan (Free Text) Plan: Assessment Sepsis due to gram positive cocci in chains bacteremia, R/O endocarditis aortic valve replacement in 2013 with aortic aneurysm repair (open heart surgery ) S/P cervical neck fusion C3-C5 history of lyme disease Plan Follow up identification and sensitivities of the gram positive cocci in the blood; started Daptomycin and Aztreonam and check 2D echo and Ct scan of the abdomen and pelvis and will check repeat blood cx will monitor clinically
[2017-03-21] MEDS ORDERED: DAPTOmycin 500 mg Inj (Cubicin) IV SCH (12:00)
[2017-03-21] MEDS ORDERED: Barium Sulfate Susp 2.1% w/v, 2.0% w/w 450 mL Bottle PO ONE (12:15)
--- NOTE | 2017-03-21 22:57 | PN ---
DATE: 03/21/2017 SUBJECTIVE: The patient has no complaints of any chest pain. No shortness of breath. He says his p ain is not well controlled. His pain medications are not accurate. He says he has been having fever s. This morning his fever decreased. He has no complaints of any chest pain. No shortness of breat h. No nausea. No vomiting. PHYSICAL EXAMINATION: VITAL SIGNS: Temperature is 99.2, pulse 77, blood pressure /80, respirations 20, O2 saturation 95%. GENERAL: The patient is comfortable, in no acute distress. HEENT: Anicteric sclerae. Moist mucosa. NECK: No JVD or adenopathy. CARDIAC: S1/S2. No murmurs. No rubs. Regular. RESPIRATORY: Clear to auscultation bilaterally. No wheezes, rales, or rhonchi. Good air entry. ABDOMEN: Bowel sounds are positive, soft, nontender, and nondistended. EXTREMITIES: No edema. Has 1+ pulses. ASSESSMENT: 1. Fever. 2. Aortic valve replacement. 3. Chronic back pain. PLAN: Blood cultures have been done, results are pending. The patient is on IV antibiotics. There are concerns about endocarditis. The patient is being followed by Dr. Kiser for infectious disease. I will get Dr. Allen from cardiology to evaluate the patient. He is on oxycodone q.4 hours. He was given daptomycin for antibiotics. CT of the abdomen and pelvis has been ordered to rule out infectio n as well and abscess. He had LFTs that were elevated as well. We will continue to follow closely. Mikhail Frank MD cc: [id number] TT: 03/21/2017 22:56:27 Confirmation # [id number] Dictation # [id number] tn
[2017-03-22] MEDS: oxyCODONE 30 mg Immediate Release Tab PO PRN ×6 (00:56→22:21)
[2017-03-22] MEDS: Aztreonam 1 Gm in NS 100mL 100 ML IVPB SCH (06:08)
--- NOTE | 2017-03-22 07:22 | CT ---
EXAM: CT Abdomen and Pelvis Without Intravenous Contrast CLINICAL HISTORY: 41 years old, male; Screening exam; Other: Rule out intraabdominal infection; Additional info: Rule out intra-abdominal infection TECHNIQUE: Axial computed tomography images of the abdomen and pelvis without intravenous contrast. This CT exam was performed using one or more of the following dose reduction techniques: automated exposure control, adjustment of the mA and/or kV according to patient size, and/or use of iterative reconstruction technique. Coronal and sagittal reformatted images were created and reviewed. EXAM DATE/TIME: 03/21/2017 11:54 AM COMPARISON: Prior CT abdomen and pelvis of 08/11/2015 FINDINGS: LOWER THORAX: Tiny bilateral pleural effusions. Retained epicardial pacing wires again seen. The Prostatic cardiac valve is in place. Patchy densities in the lung bases bilaterally, most likely representing atelectatic changes, given the appearance. ABDOMEN: LIVER: Hepatomegaly, with the liver measuring 20 cm in length on the coronal images. GALLBLADDER AND BILE DUCTS: No CT evidence of acute cholecystitis. No evidence of significant biliary ductal dilatation. PANCREAS: No CT evidence of acute pancreatitis. SPLEEN: No acute abnormality of the spleen identified. ADRENALS: No acute abnormality of the adrenal glands identified. KIDNEYS AND URETERS: Bilateral perinephric stranding, a nonspecific finding. No renal stones, hydronephrosis, or hydroureter seen. STOMACH AND BOWEL: No acute abnormality of the bowel identified. No evidence of bowel obstruction. No evidence of diverticulitis. No evidence of diffuse colitis/pancolitis. APPENDIX: Appendix is seen, and is within normal limits in appearance. PELVIS: BLADDER: No acute abnormality of the bladder identified. REPRODUCTIVE: No acute abnormality of the reproductive organs is seen. ABDOMEN and PELVIS: INTRAPERITONEAL SPACE: No evidence of free intraperitoneal air or fluid. BONES/JOINTS: No acute fractures or other acute bony abnormality noted. SOFT TISSUES: No acute abnormality of the visualized soft tissues is seen. VASCULATURE: No evidence of abdominal aortic aneurysm. No evidence of periaortic hemorrhage. LYMPH NODES: No evidence of diffuse lymphadenopathy. IMPRESSION: - Tiny bilateral pleural effusions. - Otherwise, no evidence of significant acute process on this unenhanced exam. There is no evidence of an acute intra-abdominal process. - See above for remaining findings.
--- NOTE | 2017-03-22 11:02 | PN ---
DATE: 03/22/2017 DATE: 03/22/2017 SUBJECTIVE: The patient has no complaints of any chest pain, no shortness of breath. He says he had another fever yesterday. PHYSICAL EXAMINATION: VITAL SIGNS: Temperature is 98. Pulse is 75. Blood pressure is 126/76, respirations 18. GENERAL: The patient is comfortable, in no acute distress. HEENT: Anicteric sclerae. Moist mucosa. NECK: No JVD or adenopathy. CARDIAC: S1/S2. No murmurs. No rubs. Regular. RESPIRATORY: Clear to auscultation bilaterally. No wheezes, rales, or rhonchi. Good air entry. ABDOMEN: Bowel sounds are positive, soft, nontender, and nondistended. EXTREMITIES: No edema. Has 1+ pulses. LABORATORY DATA: White count of 10.5, hemoglobin 10.4. CT of the abdomen and pelvis done shows tiny bilateral pleural effusion. No evidence of acute proce ss. ASSESSMENT: 1. Fever. 2. Aortic valve replacement. 3. Chronic back pain. 4. Sepsis. PLAN: The patient had blood cultures that are pending final results. The patient is waiting for an echo to be done. There are gram-positive cocci in chains. There are concerns that the patient has a ortic valve replacement. An echo is pending. Dr. Allen will see the patient today. The patient is o n daptomycin. He is on aztreonam. He is on a heart-healthy diet. His pain is controlled with his p ain medications. He had 100.3 fever yesterday. Mikhail Frank MD cc: [id number] TT: 03/22/2017 11:01:42 Confirmation # [id number] Dictation # [id number] lencho
--- NOTE | 2017-03-22 16:30 | CARD ---
APPROVED REPORT EXAM: Two-dimensional and M-mode echocardiogram with Doppler and color Doppler. INDICATION Infection:Rule out subacute bacterial endocarditis 2D DIMENSIONS Left Atrium (2D)4.4 (1.6-4.0cm)IVSd1.3 (0.7-1.1cm) LVDd4.0 (3.9-5.9cm)PWd1.3 (0.7-1.1cm) LVDs2.7 (2.5-4.0cm)FS (%) 33.0 % LVEF (%)62.1 (>50%) M-Mode DIMENSIONS Aortic Root2.10 (2.2-3.7cm)Aortic Cusp Exc.0.50 (1.5-2.0cm) Aortic Valve AoV Peak Mbjjcpee405.0cm/Soraya Peak GR.39mmHg Mitral Valve MV E Hxfcriag444.0cm/sMV A Wpkvyyfd42.4cm/sE/A ratio1.9 TDI E/Lateral E'0.0E/Medial E'0.0 Tricuspid Valve TR Peak Qzatgnhi271ks/sRAP [id number] Peak Gr.24mmHg [id number] LEFT VENTRICLE The left ventricle is normal size. There is borderline to mild concentric left ventricular hypertrophy. The left ventricular function is normal. The left ventricular ejection fraction is within the normal range. There is normal LV segmental wall motion. Transmitral Doppler flow pattern is Grade I-abnormal relaxation pattern. RIGHT VENTRICLE The right ventricle is normal size. There is normal right ventricular wall thickness. Systolic function is mildly reduced. ATRIA The left atrium is mildly dilated. The right atrium is mildly dilated. AORTIC VALVE The aortic valve is not well visualized. No aortic regurgitation is present. There is no aortic valvular stenosis. MITRAL VALVE The mitral valve is normal in structure. There is no mitral valve regurgitation noted. TRICUSPID VALVE There is trace tricuspid regurgitation. There is mild pulmonary hypertension. GREAT VESSELS The aortic root is normal in size. The IVC collapses <50% with inspiration. PERICARDIAL EFFUSION There is a trace loculated anterior pericardial effusion. <Conclusion> The left ventricle is normal size. There is borderline to mild concentric left ventricular hypertrophy. There is normal LV segmental wall motion. Transmitral Doppler flow pattern is Grade I-abnormal relaxation pattern. The left ventricular function is normal. The left ventricular ejection fraction is within the normal range. There is trace tricuspid regurgitation. There is mild pulmonary hypertension.
--- NOTE | 2017-03-22 16:56 | CON ---
DATE: 03/22/2017 HISTORY OF PRESENT ILLNESS: The patient is a 41-year-old male who presents with fever. PAST MEDICAL HISTORY: Notable for history of aortic valve replacement for bicuspid valve and aortic stenosis in 2013 at [facility]. He also underwent an aortic aneurysm repair. The patient has had fever for the past several days, which has included travel outside the immediate area. Denies shaking chills. Denies cough. No shortness of breath noted. SOCIAL HISTORY: Negative smoker. REVIEW OF SYSTEMS: Negative dyspnea, negative chest pain, negative edema in the lower extremities, n egative loss of consciousness. PHYSICAL EXAMINATION: VITAL SIGNS: Blood pressure varies from 126-148 systolic, heart rate is in the 80s, temperature was 103.3 this morning. NECK: Negative JVD. HEART: A II/ systolic ejection murmur with an appropriate aortic valve click. No diastolic murmur heard. EXTREMITIES: Without edema. EKG shows no acute changes. LABORATORY DATA: Hemoglobin is 10.4, white count has gone from 11.4 to 10.5. Chemistries are essent ially unremarkable with mildly elevated proBNP. The C-reactive protein is greater than 15. Echocardiogram is pending. IMPRESSION: 1. Fever. 2. Status post aortic valve replacement. 3. Physical examination reveals good aortic valve click without aortic insufficiency. 4. Will need to rule out prosthetic aortic valve endocarditis. Given these findings, we are still awaiting final cultures. Will review the echocardiogram. Doyle Allen MD cc: [id number] TT: 03/22/2017 16:55:14 Confirmation # [id number] Dictation # [id number] mn
[2017-03-23] MEDS: oxyCODONE 30 mg Immediate Release Tab PO PRN ×5 (03:00→20:50)
[2017-03-23 07:14] LABS: INR 1.37 (0.93-1.08)
[2017-03-23] MEDS: Enoxaparin 80 mg Syringe SC SCH ×2 (09:52→20:51)
--- NOTE | 2017-03-23 09:53 | PN ---
DATE: 03/23/2017 SUBJECTIVE: The patient has no complaints of any chest pain, no shortness of breath. He has no naus ea, no headaches. PHYSICAL EXAMINATION: VITAL SIGNS: Temperature is 97.9, pulse of 55, blood pressure 114/80, respirations 20. GENERAL: The patient is comfortable, in no acute distress. HEENT: Anicteric sclerae. Moist mucosa. NECK: No JVD or adenopathy. CARDIAC: S1/S2. No murmurs. No rubs. Regular. RESPIRATORY: Clear to auscultation bilaterally. No wheezes, rales, or rhonchi. Good air entry. ABDOMEN: Bowel sounds are positive, soft, nontender, and nondistended. EXTREMITIES: No edema. Has 1+ pulses. LABS: White count of 10.5, hemoglobin 10.4, creatinine is 1.0. Echo done shows LV size is normal, mild concentric LVH, normal LV segment wall motion. ASSESSMENT: 1. Sepsis secondary to gram-positive cocci. 2. Aortic valve replacement. 3. Chronic back pain. 4. Sepsis. PLAN: The patient is on daptomycin for antibiotics. He is on metoprolol. The patient is on oxycodo ne for pain. He is on a heart healthy diet. He has a second set of blood cultures that are pending. Urine cultures have been negative. Will await further culture results. He is being followed by ca rdiology and by ID and by infectious disease. There are concerns about endocarditis high on the diff erential diagnosis. Mikhail Frank MD cc: [id number] TT: 03/23/2017 09:53:24 Confirmation # [id number] Dictation # [id number] brenda
--- NOTE | 2017-03-23 14:11 | PN ---
DATE: 03/23/2017 The patient is feeling well. PHYSICAL EXAMINATION: VITAL SIGNS: Blood pressure 114/80. The heart rate is in the 50s. The patient is afebrile. NECK: Negative JVD. LUNGS: Without rales. HEART: Reveals S1, S2 with a systolic murmur with no diastolic murmur. EXTREMITIES: Without edema. LABORATORY DATA: The white count is down to 10.5. Chemistries are unchanged. Microbiology reveals blood cultures that show gram-positive cocci on the but show no growth from the . Preliminary echocardiogram reveals no vegetations on his prosthetic valve. IMPRESSION: 1. Sepsis. 2. History of aortic valve replacement. 3. History of aortic insufficiency. 4. Awaiting blood culture results. PLAN: Although the cultures so far appear to be consistent with contaminants, the concern for prosth etic valve endocarditis is medium to high. We will proceed with a DANNI. I have discussed the risks/b enefits with the patient in detail. The patient understands as well as his significant other. They had the similar procedure done several years ago and understand the risks/benefits. Will arrange for a DANNI in the morning. Doyle Allen MD cc: [id number] TT: 03/23/2017 14:11:34 Confirmation # [id number] Dictation # [id number] mn
--- NOTE | 2017-03-23 17:29 | CP.PCM.PN ---
Subjective - Date & Time of Evaluation Date of Evaluation: 03/23/17 Time of Evaluation: 11:05 - Subjective Subjective: Feeling a little better but still occasionally has chest tightness. No fevers overnight. Objective - Vital Signs/Intake and Output Vital Signs (last 24 hours): Temp Pulse Resp BP Pulse Ox 98 F 75 16 126/76 96 03/22/17 07:30 03/22/17 07:30 03/22/17 07:30 03/22/17 07:30 03/22/17 07:30 Intake and Output: 03/22/17 03/22/17 06:59 18:59 Intake Total 600 Balance 600 - Medications Medications: Current Medications Acetaminophen (Tylenol 325mg Tab) 650 mg PO Q4H PRN PRN Reason: Fever >100.4 F Last Admin: 03/22/17 00:59 Dose: 650 mg Aztreonam (Azactam 1 Gm) 100 mls @ 100 mls/hr IVPB Q8 ZEE PRN Reason: Protocol Stop: 03/27/17 22:01 Last Admin: 03/22/17 06:08 Dose: 100 mls/hr Daptomycin 490 mg/ Sodium (Chloride) 100 mls @ 200 mls/hr IV Q24H ZEE Stop: 03/26/17 12:01 Last Admin: 03/21/17 14:26 Dose: 200 mls/hr Metoprolol Tartrate (Lopressor) 50 mg PO BID [facility] Last Admin: 03/21/17 18:43 Dose: 50 mg Oxycodone HCl (Oxycodone Immediate Release Tab) 30 mg PO Q4 PRN PRN Reason: Pain, moderate (4-7) Last Admin: 03/22/17 06:08 Dose: 30 mg - Labs Labs: PT 45.5 Seconds (9.9-11.8) H* 03/20/17 12:20 INR 4.21 (0.93-1.08) H* 03/20/17 12:20 - Constitutional Appears: Non-toxic, No Acute Distress - Head Exam Head Exam: NORMAL INSPECTION - Neck Exam Neck Exam: absent: Meningismus - Respiratory Exam Respiratory Exam: Decreased Breath Sounds - Cardiovascular Exam Cardiovascular Exam: +S1, +S2 - GI/Abdominal Exam GI & Abdominal Exam: Soft. absent: Tenderness Assessment and Plan - Assessment and Plan (Free Text) Plan: Assessment Sepsis due to gram positive cocci in chains bacteremia, R/O endocarditis aortic valve replacement in 2014 with aortic aneurysm repair (open heart surgery ) S/P cervical neck fusion C3-C5 history of lyme disease Plan Follow up identification and sensitivities of the gram positive cocci in the blood; continue Daptomycin; 2D echo does not show the aortic valve very well - patient to undergo DANNI; CT scan of the abdomen and pelvis does not show acute pathology; repeat blood cx are negative so far will continue to monitor clinically
[2017-03-24] MEDS: oxyCODONE 30 mg Immediate Release Tab PO PRN ×5 (01:00→22:10)
--- NOTE | 2017-03-24 11:09 | PN ---
DATE: 03/24/2017 The patient is asymptomatic. PHYSICAL EXAMINATION: VITAL SIGNS: He is afebrile. NECK: Negative JVD. LUNGS: Without rales. HEART: Reveals S1, S2. EXTREMITIES: Without edema. LABORATORY DATA: Cultures were noted. The patient is scheduled for DANNI and is agreeable today. Doyle Allen MD cc: [id number] TT: 03/24/2017 11:08:36 Confirmation # [id number] Dictation # [id number] tn
--- NOTE | 2017-03-24 11:31 | PN ---
DATE: 03/24/2017 SUBJECTIVE: The patient has no complaints of any headaches or dizziness. PHYSICAL EXAMINATION: VITAL SIGNS: Temperature is 98.7, pulse of 83, blood pressure 130/74, respirations 16. GENERAL: The patient is comfortable, in no acute distress. HEENT: Anicteric sclerae. Moist mucosa. NECK: No JVD or adenopathy. CARDIAC: S1/S2. No murmurs. No rubs. Regular. RESPIRATORY: Clear to auscultation bilaterally. No wheezes, rales, or rhonchi. Good air entry. ABDOMEN: Bowel sounds are positive, soft, nontender, and nondistended. EXTREMITIES: No edema. Has 1+ pulses. LABS: White count of 10.5, hemoglobin is 10.4, creatinine is 1.0. ASSESSMENT: 1. Sepsis secondary to gram-positive cocci. 2. Aortic valve replacement. 3. Chronic pain. PLAN: The patient is currently on Lovenox for anticoagulation. He is going to be on Tylenol. He is going to continue on daptomycin. He is on Ambien for sleep. He has blood cultures that are pending . He is going to get a DANNI done. Will await DANNI results and culture results. Mikhail Frank MD cc: [id number] TT: 03/24/2017 11:30:10 Confirmation # [id number] Dictation # [id number] brenda
[2017-03-24] MEDS ORDERED: Midazolam 2 MG/2 ML VIAL ONE ×2 (11:55→12:23)
[2017-03-24] MEDS ORDERED: Flumazenil 0.1 mg/ml Inj (5ml) IVP ONE (11:55)
[2017-03-24] MEDS ORDERED: Naloxone 0.4 mg/ml Inj (Adult) ONE (11:56)
[2017-03-24] MEDS ORDERED: Midazolam 2 MG/2 ML VIAL IV ONE ×5 (12:00→12:08)
[2017-03-24] MEDS ORDERED: Sodium Chloride 0.9% 1,000 ML IV SCH (12:45)
[2017-03-24] MEDS: Enoxaparin 80 mg Syringe SC SCH ×2 (13:58→21:40)
--- NOTE | 2017-03-24 17:08 | CARD ---
APPROVED REPORT Reason For Test : Rule out endocarditis. PROCEDURE After obtaining informed consent, patient underwent transesophageal echo in the Echo Lab. Type of Sedation : Conscious Sedation Sedation was administered by Dr. Schilling. Sedation was achieved with Versed and , Fentanyl 4 mg and 200 mcg intravenously. Transesophageal probe was inserted and advanced into esophagus without difficulty. Echo enhancement indication: The DANNI was performed without complications. Throughout the procedure, the blood pressure, pulse oximetry, cardiac rhythm, and rate were monitored. The patient tolerated the procedure without adverse effects. Recovery from conscious sedation was uneventful and vital signs were stable. LEFT VENTRICLE The left ventricle is normal size. There is normal left ventricular wall thickness. The left ventricular function is normal. There is normal LV segmental wall motion. No left ventricle thrombus noted on this study. There is no ventricular septal defect visualized. There is no left ventricular aneurysm. There is no mass noted in the left ventricle. RIGHT VENTRICLE The right ventricle is normal size. There is normal right ventricular wall thickness. The right ventricular systolic function is normal. ATRIA The left atrium is mildly dilated. The right atrium is borderline dilated. The interatrial septum is intact with no evidence for an atrial septal defect. AORTIC VALVE There are no vegetations on this prosthetic aortic valve. There is a mechanical aortic valve prosthesis. The prosthetic aortic valve appears normal. MITRAL VALVE Mitral annular calcification is mild. The mitral valve leaflets are thickened. There is no evidence of mitral valve prolapse. There is no mitral valve stenosis. Mitral regurgitation is mild to moderate. TRICUSPID VALVE The tricuspid valve leaflets display thickening. There is mild tricuspid regurgitation. There is no tricuspid valve prolapse or vegetation. There is no tricuspid valve stenosis. PULMONIC VALVE The pulmonary valve is normal in structure. GREAT VESSELS The aortic root is normal in size. The ascending aorta is normal in size. The pulmonary artery is normal. The IVC is normal in size and collapses >50% with inspiration. <Conclusion> Normal Lv Fx. EF-55-60% Normal Aortic Mech Prosthesis noted Mild Tr Mild to moderate MR No evidence of endocarditis noted. ( Off Note Pt was fully awake during DANNI and was severely gaging inspite of 4 mg versed and 200 mcg of Fentanyl, probably developed high tolerance for pain meds, at home takes oxy contin every 4 hours).
--- NOTE | 2017-03-24 19:18 | PN ---
DATE: 03/24/2017 The patient is in bed in no acute distress, nontoxic. PHYSICAL EXAMINATION: VITAL SIGNS: Temperature is 98, blood pressure is 150/100, respiratory rate of 16, heart rate of 86. HEENT: Unremarkable. NECK: Supple. LUNGS: Have decreased breath sounds. HEART: Normal S1, S2. ABDOMEN: Soft. LABORATORY DATA: Reveals a white count of 10.5, hemoglobin of 10, platelets are noted to be 291. Ch emistries are noted. Serology is negative. Microbiology reveals strep pneumonia in blood cultures a nd the pansensitive strep pneumonia. Repeat blood cultures from the are negative. Dr. Schilling's e cho results are reviewed. No evidence of endocarditis, normal left ventricular fraction of 55%, norm al aortic mechanical prosthesis. Review of orders reveals the patient to be on daptomycin. ASSESSMENT AND PLAN: A 41-year-old male with sepsis with strep pneumoniae bacteremia, negative trans esophageal echocardiography, aortic valve replacement in 2013, aortic aneurysm repair. Currently on daptomycin with a negative transesophageal echocardiography. CAT scan of the abdomen and pelvis is ne gative. Chest x-ray is reported to be no consolidation. Will order a CAT scan of the chest without c ontrast to see if the infiltrate is responsible for the bacteremia. We will follow closely with you. Daquan Chahal MD cc: 350 TT: 03/24/2017 19:17:43 Confirmation # [id number] Dictation # [id number] frederick
[2017-03-25] MEDS: oxyCODONE 30 mg Immediate Release Tab PO PRN ×5 (06:09→23:10)
--- NOTE | 2017-03-25 10:12 | PN ---
DATE: 03/25/2017 The patient is in bed, in no acute distress, nontoxic. PHYSICAL EXAMINATION: VITAL SIGNS: Temperature is 98, blood pressure is 140/50, respiratory rate 16. HEENT: Unremarkable. NECK: Supple. LUNGS: Decreased breath sounds. HEART: Normal S1, S2. ABDOMEN: Soft, nontender. No organomegaly, no rebound, no guarding, no masses. LABORATORY DATA: Reveals the patient's blood cultures initially grew Strep pneumoniae, sensitive to penicillin, ceftriaxone and moxifloxacin. Repeat blood cultures on the , 2 days later, is negati ve. The patient had a negative DANNI. The patient had a CAT scan of the chest last night and CAT scan of the chest results are not available. ASSESSMENT AND PLAN: This is a 41-year-old with sepsis with Streptococcal pneumoniae bacteremia, neg ative transesophageal echocardiogram, aortic valve replacement in 2013, aortic aneurysm, presented wi th Streptococcal pneumoniae bacteremia, had pulmonary symptoms as outpatient. THE PATIENT IS ALLERGI C TO PENICILLIN, and on daptomycin. Will discontinue the daptomycin and use meropenem 1 gram q. 8 pe nding CAT scan of the chest results. Review of the EKG reveals a QTC of 445. Daquan Chahal MD cc: 350 TT: 03/25/2017 10:01:55 Confirmation # [id number] Dictation # [id number] mn
--- NOTE | 2017-03-25 10:13 | CT ---
PROCEDURE: CT Chest without contrast HISTORY: r/o infiltrate COMPARISON: 10/03/2014 TECHNIQUE: Contiguous axial images were obtained through the chest without intravenous contrast enhancement. Sagittal and coronal reconstructions were performed. Radiation dose (DLP): 478.11 mGy-cm. This CT exam was performed using one or more of the following dose reduction techniques: Automated exposure control, adjustment of the mA and/or kV according to patient size, and/or use of iterative reconstruction technique. FINDINGS: LUNGS: Linear scar/atelectasis in both lower lobes. No pulmonary infiltrate. No pleural effusion. MEDIASTINUM: Unremarkable thoracic aorta. No aneurysm. Normal-sized heart. Sternotomy wires are noted. Main pulmonary artery unremarkable. No vascular congestion. No lymphadenopathy. PLEURA: No pleural fluid. No pneumothorax. BONES: No fracture. No destructive lesion. UPPER ABDOMEN: Grossly unremarkable. OTHER FINDINGS: None. IMPRESSION: Bilateral lower lobe linear scar/ atelectasis. Sternotomy wires. Otherwise unremarkable examination. No pulmonary infiltrate is identified.
--- NOTE | 2017-03-25 10:27 | PN ---
DATE: 03/25/2017 The patient is asymptomatic. PHYSICAL EXAMINATION: VITAL SIGNS: Blood pressure is 145/91. The heart rate is in the 80s. NECK: Negative JVD. LUNGS: Without rales. HEART: Reveals a II/ systolic ejection murmur. EXTREMITIES: Without edema. Hemoglobin is 10.4. Chemistries are essentially unchanged. DANNI reveals no vegetations in is prosthetic aortic valve. IMPRESSION: 1. No evidence for prosthetic valve endocarditis. 2. History of aortic valve replacement for #3. 3. Aortic insufficiency. Given these findings, the patient is on continued antibiotics. Doyle Allen MD cc: [id number] TT: 03/25/2017 10:26:29 Confirmation # [id number] Dictation # [id number] en
[2017-03-25] MEDS ORDERED: Enoxaparin 60 mg Syringe ONE (10:45)
[2017-03-25] MEDS ORDERED: Meropenem 1g/NS 100mL IVPB 1 GM/100 ML PIGGYBACK IVPB ONE (10:45)
[2017-03-25] MEDS: oxyCODONE 30 mg Immediate Release Tab ONE ×2 (10:49→14:49)
[2017-03-25] MEDS: Meropenem 1g/NS 100mL IVPB 1 GM/100 ML PIGGYBACK IVPB SCH ×3 (10:53→21:40)
[2017-03-25] MEDS ORDERED: Enoxaparin 80 mg Syringe ONE (11:11)
[2017-03-25] MEDS: Enoxaparin 80 mg Syringe SC SCH ×2 (11:12→21:39)
[2017-03-26] MEDS: oxyCODONE 30 mg Immediate Release Tab PO PRN ×4 (05:42→17:51)
[2017-03-26 07:50] VITALS: RESP 18
[2017-03-26] MEDS: Meropenem 1g/NS 100mL IVPB 1 GM/100 ML PIGGYBACK IVPB SCH (08:24)
[2017-03-26] MEDS: Enoxaparin 80 mg Syringe SC SCH (09:48)
[2017-03-26] MEDS ORDERED: levoFLOXacin 500 MG TAB PO SCH (11:30)
--- NOTE | 2017-03-26 12:04 | PN ---
DATE: 03/26/2017 The patient seen earlier today in room 565, bed 1. He is doing well. No fevers, no chills, no nause a, no vomiting, no chest pain. PHYSICAL EXAMINATION: VITAL SIGNS: Temperature is 98. Blood pressure is 140/80, respiratory rate of 18. HEENT: Unremarkable. NECK: Supple. LUNGS: Decreased breath sounds. HEART: Normal S1, S2. ABDOMEN: Soft, nontender. LABORATORY EXAMINATION: Reveals the patient's repeat blood cultures are negative still and white cou nt is down to 10,000. Sed rate of 62. LFTs have improved. C-reactive protein is elevated. BNP is high. Urinalysis shows protein in the urines, trace casts. He does have anemia. ASSESSMENT AND PLAN: A 41-year-old male with sepsis and Streptococcus pneumoniae bacteremia, negativ e transesophageal echocardiogram. Repeat cultures negative. Aortic valve replacement in 2013 with S treptococcus pneumoniae bacteremia. We will discontent the meropenem and complete with p.o. Levaqui n x 7 days at 500 mg. The patient's QTC of 445. Discussed it with Dr. Frank who is off today reg arding the need for workup for multiple myeloma in this patient and also discussed with Dr. Kingston who is covering for Dr. Frank. She is also hematology/oncology, workup for multiple myeloma. The p atient to follow up as an outpatient with me, with Dr. Kingston and Dr. Ryan. Instructions given. He is also advised to come back to the Emergency Room as soon as possible if he develops fevers and c hills. Daquan Chahal MD cc: 350 TT: 03/26/2017 12:04:11 Confirmation # [id number] Dictation # [id number] tn
[2017-03-26 15:53] VITALS: TEMP 98.4; O2SAT 94
[2017-03-26 17:20] VITALS: BP 122/66; PULSE 74
--- NOTE | 2017-03-26 23:48 | DS ---
DATE OF DISCHARGE: 03/26/2017 DISCHARGE DIAGNOSES: 1. Streptococcus pneumoniae bacteremia. 2. Prosthetic aortic valve. 3. Chronic back pain. 4. Anemia. HOSPITAL COURSE: The patient was admitted with fever. Blood cultures were positive for Streptococcu s pneumoniae bacteremia. He was treated with IV antibiotics. He defervesced during hospitalization. ID consultation, Dr. Chahal, requested. He is currently being discharged in stable condition. A workup for bacterial endocarditis was negative. DANNI was negative. Echocardiogram was negative. CT chest did not show any lesions. PHYSICAL EXAMINATION: GENERAL: On discharge, comfortable in bed, no acute distress. VITAL SIGNS: Stable. Temperature 98.6, heart rate is 80 per minute, blood pressure 130/80, respirat ory rate 15 per minute. HEENT: Atraumatic, normocephalic. Oral mucosa moist. NECK: Supple. CHEST: Air entry present, equal bilateral. No added sound. CARDIOVASCULAR: S1, S2 normal. No murmur, no gallop. ABDOMEN: Soft, nontender, no hepatosplenomegaly. EXTREMITIES: No edema. CENTRAL NERVOUS SYSTEM: Alert, oriented x 3, no focal sensorimotor deficits. DISPOSITION: Discharge home. CONDITION ON DISCHARGE: Stable. DIET: Regular. DISCHARGE MEDICATIONS: Levaquin 500 mg p.o. daily for 7 days. Continue home medications: Coumadin 10 mg daily, Lopressor 50 mg p.o. b.i.d., oxycodone 30 mg q. 4 hours p.r.n. for back pain, Ambien 10 mg p.o. at bedtime. FOLLOWUP: With Dr. Frank in 1 week. Follow up with Dr. Kingston for 1 week to rule out multiple mye isamar. CONDITION ON DISCHARGE: Stable. DISPOSITION: Discharge home. Time spent in preparing discharge and coordinating care, 55 minutes. Discussed with the staff nurse, discussed with the patient, discussed with Dr. Frank. Charity Kingston MD cc: [id number] TT: 03/26/2017 23:47:14 az
--- NOTE | 2017-03-28 08:38 | PN ---
DATE: 03/25/2017 SUBJECTIVE: The patient is a 41-year-old male admitted to the hospital with high-grade fever. He luna s history of aortic valve replacement. There was suspicion for bacterial endocarditis. He has histo ry of chronic back pain, had spinal fusion surgery. Blood culture is positive for Strep pneumoniae. DANNI is negative for vegetation. CAT scan of the chest was negative. He is currently on IV antibiot ics. ID following. Complaining of neck pain. PAST MEDICAL HISTORY: Aortic valve replacement secondary to aortic stenosis in 2013, chronic back pa in, and cervical disk fusion. ALLERGIES: METOCLOPRAMIDE, PENICILLIN, PREGABALIN, VALSARTAN. SOCIAL HISTORY: Disabled, heavy smoker. HOME MEDICATIONS: Coumadin 10 mg daily, metoprolol 50 mg twice a day, Percocet p.r.n. REVIEW OF SYSTEMS: As per HPI. PHYSICAL EXAMINATION: GENERAL: Comfortable in bed, in no acute distress. VITAL SIGNS: Stable. Temperature 98.7, heart rate 80 per minute, blood pressure 130/70, respiratory rate 18 per minute, oxygen saturation 98% room air. HEENT: Normal. NECK: No lymphadenopathy. CHEST: Air entry present, equal bilateral. No added sound. CARDIOVASCULAR: S1, S2 normal. No murmur, no gallop. ABDOMEN: Soft, nontender, no hepatosplenomegaly. EXTREMITIES: No edema. CENTRAL NERVOUS SYSTEM: Alert, oriented x 3, no focal sensorimotor deficit. LABORATORY DATA: White count 11.4, hemoglobin 10.4, hematocrit 31.9, platelet count 291. Sodium 139 , potassium 3.9, AST 44, ALT 66, alkaline phosphatase 138. CURRENT MEDICATIONS: Tylenol 650 q. 4 hours p.r.n., Lovenox 80 mg subQ q. 12, meropenem 1 gram IV q. 8 hours, Lopressor 50 mg p.o. b.i.d., ____ 30 mg q. 4 hours p.r.n., Ambien 10 mg p.o. at bedtime. ASSESSMENT: 1. Streptococcal pneumoniae bacteremia. 2. Prosthetic aortic valve. 3. Anemia. 4. Leukocytosis. 5. Chronic back pain. PLAN: We will continue Lovenox 80 mg subQ q. 12. Leukocytosis is resolving. He has chronic anemia. Hemoglobin and hematocrit stable. Cardiology following. ID following. He is on IV antibiotic wit h meropenem. No evidence of endocarditis, DANNI normal. CAT scan of the chest normal. Continue beta shannon 50 mg p.o. b.i.d. We will continue to monitor blood counts. Charity Kingston MD cc: [id number] TT: 03/26/2017 07:20:26 Confirmation # [id number] Dictation # [id number] tn
== END 2017-03-26 19:27 | disposition home or self-care (01) | DRG 872 ==
LOC: ED 11:25 → ERH 13:10 → 5RNO 15:42 → OBSVTOIN 03-21 10:37
PROVIDERS: ADMIT Internal Medicine Nephrology; ATTEND Internal Medicine Nephrology
PROC: B246ZZ4 Ultrasonography of Right and Left Heart, Transesophageal (ICD-10-PCS; principal; 2017-03-24 11:30)
DX: A40.9 Streptococcal sepsis, unspecified (principal); I27.2 Other secondary pulmonary hypertension; I08.2 Rheumatic disorders of both aortic and tricuspid valves; I10 Essential (primary) hypertension; D64.9 Anemia, unspecified; B95.3 Streptococcus pneumoniae as the cause of diseases classified elsewhere; G89.29 Other chronic pain; I35.0 Nonrheumatic aortic (valve) stenosis; I35.1 Nonrheumatic aortic (valve) insufficiency; Z79.01 Long term (current) use of anticoagulants; Z79.899 Other long term (current) drug therapy; Z86.19 Personal history of other infectious and parasitic diseases; Z88.0 Allergy status to penicillin; Z95.2 Presence of prosthetic heart valve; Z98.1 Arthrodesis status; Z88.8 Allergy status to other drugs, medicaments and biological substances; R40.2412 Glasgow coma scale score 13-15, at arrival to emergency department; F17.210 Nicotine dependence, cigarettes, uncomplicated; M51.36 Other intervertebral disc degeneration, lumbar region; M54.9 Dorsalgia, unspecified

== ENCOUNTER 2017-08-15 18:23 | Inpatient (IN) | payer OTHER ==
[2017-08-15 19:26] LABS: PH,URINE 8.5 (4.7-8.0); URINE BILIRUBIN NEGATIVE (NEGATIVE); URINE BLOOD NEGATIVE (NEGATIVE); URINE GLUCOSE (UA) NEGATIVE (NEGATIVE); URINE KETONE TRACE mg/dL (NEGATIVE); URINE LEUKOCYTE ESTERASE NEGATIVE Leu/uL (NEGATIVE); URINE PROTEIN TRACE mg/dL (<30 mg/dL); URINE UROBILINOGEN 0.2 E.U./dL (<1 E.U./dL)
[2017-08-15 19:27] LABS: BASO # 0.02 K/mm3 (0.0-2.0); BASO % 0.2 % (0.0-3.0); EOS # 0.1 (0.0-0.7); EOS % 0.8 % (1.5-5.0); GRAN # 8.47 (1.4-6.5); HEMATOCRIT 41.2 % (42.0-52.0); LYMPH # 1.6 (1.2-3.4); MEAN CELL VOLUME 87.7 fl (80.0-105.0); MEAN CORPUSCULAR HGB CONC 34.2 g/dl (31.0-37.0); MEAN PLATELET VOLUME 10.3 fl (7.0-11.0); MONO # 0.7 (0.1-0.6); RED CELL DISTRIBUTION WIDTH 14.2 % (11.5-14.5); URINE APPEARANCE CLEAR (CLEAR); URINE COLOR YELLOW (YELLOW); WHITE BLOOD COUNT 10.9 10^3/ul (4.5-11.0)
[2017-08-15 19:33] LABS: INR 2.23 (0.93-1.08); PARTIAL THROMBOPLASTIN TIME 40.9 Seconds (25.1-36.5)
[2017-08-15 19:36] LABS: ALB/GLOB RATIO 1.1 (1.1-1.8); ALKALINE PHOSPHATASE 96 U/L (38-126); ALT/SGPT 72 U/L (7-56); AST/SGOT 41 U/L (17-59); BILIRUBIN,TOTAL 0.5 mg/dL (0.2-1.3); BLOOD UREA NITROGEN 15 mg/dL (7-21); CALCIUM 9.7 mg/dL (8.4-10.5); CARBON DIOXIDE 25 mmol/L (21-33); CHLORIDE 107 mmol/L (98-107); GFR AFRICAN-AMERICAN > 60; GLUCOSE,RANDOM 120 mg/dL (70-110); POTASSIUM 3.9 mmol/L (3.6-5.0); SODIUM 142 mmol/L (132-148)
[2017-08-15] MEDS ORDERED: Clindamycin 600 MG in Sodium Chloride 0.9% 100 ML IVPB STA (19:48)
[2017-08-15] MEDS ORDERED: Vancomycin 1gm in NS 250ml 1 GM/250 ML BAG IVPB STA (19:49)
[2017-08-15] MEDS ORDERED: Morphine 4 mg/ml ISec IVP STA (19:50)
--- NOTE | 2017-08-15 20:21 | ED PDOC ---
Arrival/HPI - General Chief Complaint: Back Pain Time Seen by Provider: 08/15/17 18:53 Historian: Patient - History of Present Illness Narrative History of Present Illness (Text): 08/15/17 20:19 41yo male with PMHx of Aortic value replacement in 2013 and aortic aneurysm repair present with complaint of generalized bodyache, right tooth pain/gum swelling, lower back pain. States lower back pain that radiates to his lower leg started few days ago. He woke up today with dental swelling, generalized body ache and chest pain when he lay down on lateral decubitus. He have chronic back pain and takes Oxycodone for his pain. States took it without relieve. + Chills. He denies fever, nausea, vomiting, focal weakness, abdominal pain, ripping/tearing upper back pain, any other complaint. Past Medical History - Provider Review Nursing Documentation Reviewed: Yes - Infectious Disease Hx of Infectious Diseases: None - Cardiac Hx Cardiac Disorders: Yes Hx Hypertension: Yes Other/Comment: Open Heart Surgery. Bicup. Aortic Valve Surgery - Pulmonary Hx Respiratory Disorders: No - Neurological Hx Neurological Disorder: Yes Other/Comment: pt had cervical neck fusion, neck still tingles, arms go numb, can't lie flat. Spine Fused C3 to C5 - HEENT Hx HEENT Disorder: No - Renal Hx Renal Disorder: No - Endocrine/Metabolic Hx Endocrine Disorders: No - Hematological/Oncological Hx Blood Disorders: Yes Other/Comment: lyme disease 2x's over the past 3 years - Integumentary Hx Dermatological Disorder: No - Musculoskeletal/Rheumatological Hx Musculoskeletal Disorders: Yes Hx Falls: Yes - Gastrointestinal Hx Gastrointestinal Disorders: No - Genitourinary/Gynecological Hx Genitourinary Disorders: No - Psychiatric Hx Psychophysiologic Disorder: No Hx Emotional Abuse: No Hx Physical Abuse: No Hx Substance Use: No - Surgical History Hx Open Heart Surgery: Yes (AAA) Hx Orthopedic Surgery: Yes (cervical neck fusion 05/2012) Hx Valve Replacement: Yes - Anesthesia Hx Anesthesia: Yes - Suicidal Assessment Feels Threatened In Home Enviroment: No Family/Social History - Physician Review Nursing Documentation Reviewed: Yes Family/Social History: Unknown Family HX Smoking Status: Light Smoker < 10 Cigarettes Daily Hx Alcohol Use: No Hx Substance Use: No Hx Substance Use Treatment: No Allergies/Home Meds Allergies/Adverse Reactions: Allergies meropenem [From Merrem] Allergy (Verified 08/15/17 18:25) RASH metoclopramide HCl [From Reglan] Adverse Reaction (Verified 08/15/17 18:25) SHORTNESS OF BREATH Penicillins Adverse Reaction (Verified 08/15/17 18:25) ANAPHYLAXIS pregabalin [From Lyrica] Adverse Reaction (Verified 08/15/17 18:25) ITCHING valsartan [From Diovan] Adverse Reaction (Verified 08/15/17 18:25) SWELLING Home Medications: Home Meds Medication Instructions Recorded Confirmed Warfarin [Coumadin] 10 mg PO DAILY 07/11/16 08/15/17 oxyCODONE [oxyCODONE Immediate 30 mg PO QID PRN 07/11/16 08/15/17 Release Tab] Lisinopril [Zestril] 10 mg PO DAILY 08/15/17 08/15/17 Review of Systems - Physician Review All systems were reviewed & negative as marked: Yes - Review of Systems Constitutional: Normal Eyes: Normal ENT: Other (Dental pain) Respiratory: Normal Cardiovascular: Normal Gastrointestinal: Normal Genitourinary Male: Normal Musculoskeletal: Back Pain, Myalgias Skin: Normal Neurological: Normal Endocrine: Normal Hemo/Lymphatic: Normal Psychiatric: Normal Physical Exam Vital Signs Reviewed: Yes Vital Signs Temp Pulse Resp BP Pulse Ox 08/15/17 23:02 63 16 149/82 98 08/15/17 20:24 80 16 168/72 H 100 08/15/17 18:27 98.9 F 81 16 174/89 H 97 Temperature: Afebrile Blood Pressure: Normal Pulse: Regular Respiratory Rate: Normal Appearance: Positive for: Well-Appearing, Non-Toxic, Comfortable Pain Distress: None Mental Status: Positive for: Alert and Oriented X 3 - Systems Exam Head: Present: Atraumatic, Normocephalic Pupils: Present: PERRL Extroacular Muscles: Present: EOMI Conjunctiva: Present: Normal Mouth: Present: Moist Mucous Membranes. No: Normal Teeth (Right upper gingival swelling surrounding the molar tooth with overlaying jaw swelling) Neck: Present: Normal Range of Motion Respiratory/Chest: Present: Clear to Auscultation, Good Air Exchange. No: Respiratory Distress, Accessory Muscle Use, Wheezes, Decreased Breath Sounds, Rales, Retracting, Rhonchi Cardiovascular: Present: Regular Rate and Rhythm, Normal S1, S2. No: Murmurs Abdomen: Present: Normal Bowel Sounds. No: Tenderness, Distention, Peritoneal Signs Back: Present: Paraspinal Tenderness, Pain with Leg Raise. No: Midline Tenderness Upper Extremity: Present: Normal Inspection. No: Cyanosis, Edema Lower Extremity: Present: Normal Inspection. No: Edema Neurological: Present: GCS=15, CN II-XII Intact, Speech Normal Skin: Present: Warm, Dry, Normal Color. No: Rashes Psychiatric: Present: Alert, Oriented x 3, Normal Insight, Normal Concentration Medical Decision Making ED Course and Treatment: 08/15/17 21:34 PT presented for stated history. He was afebrile and hemodynamically stable in ED. Lab was reviewed with no leukocytosis. PT with history of Aortic value replaced complaining of cehst pain will need admission for further evaluation to r/o endocarditis. Case was DW dR. Frank and he accepted pt. Pt was started on clindamycin and Vancomycin. Result and plan was DW the pt and he agreed. - Lab Interpretations Lab Results: 08/15/17 19:07 08/15/17 19:07 Lab Results 08/15/17 19:07: Lactate Dehydrogenase 804 H, Total Creatine Kinase 160, Troponin I < 0.01 08/15/17 19:07: Urine Color Yellow, Urine Appearance Clear, Urine pH 8.5, Ur Specific Garita 1.015, Urine Protein Trace H, Urine Glucose (UA) Negative, Urine Ketones Trace H, Urine Blood Negative, Urine Nitrate Negative, Urine Bilirubin Negative, Urine Urobilinogen 0.2, Ur Leukocyte Esterase Negative, Urine RBC 0 - 2, Urine WBC 0 - 2, Ur Epithelial Cells None, Amorphous Sediment Small, Urine Bacteria Mod 08/15/17 19:07: Sodium 142, Potassium 3.9, Chloride 107, Carbon Dioxide 25, Anion Gap 14, BUN 15, Creatinine 0.8, Est GFR ( Amer) > 60, Est GFR (Non- Af Amer) > 60, Random Glucose 120 H, Calcium 9.7, Total Bilirubin 0.5, AST 41, ALT 72 H, Alkaline Phosphatase 96, Total Protein 8.0, Albumin 4.2, Globulin 3.8 , Albumin/Globulin Ratio 1.1 08/15/17 19:07: PT 24.7 H, INR 2.23 H, APTT 40.9 H 08/15/17 19:07: WBC 10.9, RBC 4.70, Hgb 14.1, Hct 41.2 L, MCV 87.7, MCH 30.0, MCHC 34.2, RDW 14.2, Plt Count 301, MPV 10.3, Gran % 78.0 H, Lymph % (Auto) 15.0 L, Leake % (Auto) 6.0, Eos % (Auto) 0.8 L, Baso % (Auto) 0.2, Gran # 8.47 H , Lymph # 1.6, Leake # 0.7 H, Eos # 0.1, Baso # 0.02 - RAD Interpretation Radiology Orders: 08/15/17 19:38 CHEST TWO VIEWS (PA/LAT) [RAD] Stat - Medication Orders Current Medication Orders: Lisinopril (Zestril) 10 mg PO DAILY ZEE Oxycodone HCl (Oxycodone Immediate Release Tab) 30 mg PO QID PRN PRN Reason: Pain, moderate (4-7) Last Admin: 08/15/17 22:40 Dose: 30 mg MAR Pain Assessment Document 08/15/17 22:40 EQ (Rec: 08/15/17 22:40 EQ [email or web address]) Pain Reassessment Is this a pain reassessment? Yes Sleep Is patient sleeping during reassessment? No Presence of Pain Presence of Pain Yes Pain Scale Used Pain Scale Used Numeric Location Left, Right or Bilateral Right Upper or Lower Upper Description Description Constant Warfarin Sodium (Coumadin) 10 mg PO 1800 ZEE PRN Reason: Protocol Discontinued Medications Clindamycin Phosphate 600 mg/ (Sodium Chloride) 104 mls @ 108 mls/hr IVPB STAT STA PRN Reason: Protocol Stop: 08/15/17 20:45 Last Admin: 08/15/17 20:57 Dose: 108 mls/hr eMAR Start Stop Document 08/15/17 20:57 HI (Rec: 08/15/17 20:57 HI [email or web address]) Intravenous Solution Start Date 08/15/17 Start Time 20:57 Vancomycin HCl (Vancomycin 1gm) 1 gm in 250 mls @ 167 mls/hr IVPB STAT STA PRN Reason: Protocol Stop: 08/15/17 21:18 Last Admin: 08/15/17 22:10 Dose: 167 mls/hr eMAR Start Stop Document 08/15/17 22:10 EQ (Rec: 08/15/17 22:11 EQ [place] [id number]) Intravenous Solution Start Date 08/15/17 Start Time 22:11 Morphine Sulfate (Morphine) 4 mg IVP STAT STA Stop: 08/15/17 19:51 Last Admin: 08/15/17 20:57 Dose: 4 mg MAR Pain Assessment Document 08/15/17 20:57 HI (Rec: 08/15/17 20:57 HI [place] [id number]) Pain Reassessment Is this a pain reassessment? No Sleep Is patient sleeping during reassessment? No Presence of Pain Presence of Pain Yes IVP Administration Document 08/15/17 20:57 HI (Rec: 08/15/17 20:57 HI [place] [id number]) Charges for Administration # of IVP Administrations 1 Disposition/Present on Arrival - Present on Arrival Any Indicators Present on Arrival: No History of DVT/PE: No History of Uncontrolled Diabetes: No Urinary Catheter: No History of Decub. Ulcer: No History Surgical Site Infection Following: None - Disposition Have Diagnosis and Disposition been Completed?: Yes Diagnosis: Intractable back pain, Dental abscess, Status post aortic valve replacement with prosthetic valve Disposition: HOSPITALIZED Disposition Time: 20:45 Patient Problems: Current Active Problems Problem Status Onset Dental abscess Acute Intractable back pain Acute Status post aortic valve replacement with prosthetic valve Acute Condition: FAIR
[2017-08-15 20:29] LABS: URINE AMORPHOUS SEDIMENT SMALL; URINE BACTERIA MOD (NEG); URINE RBC 0 - 2 /hpf (0-2); URINE WBC 0 - 2 /hpf (0-6)
[2017-08-15 20:58] LABS: TROPONIN I < 0.01 ng/mL
[2017-08-15] MEDS: oxyCODONE 30 mg Immediate Release Tab PO PRN (22:40)
[2017-08-16 00:03] VITALS: BMI 29.1
[2017-08-16] MEDS: oxyCODONE 30 mg Immediate Release Tab PO PRN ×4 (04:28→21:39)
--- NOTE | 2017-08-16 09:16 | RAD ---
HISTORY: chest pain COMPARISON: 03/20/2017 TECHNIQUE: Chest PA and lateral FINDINGS: LUNGS: No active pulmonary disease. PLEURA: No significant pleural effusion identified. No pneumothorax apparent. CARDIOVASCULAR: Sternotomy wires. Aortic valvular prosthesis. Normal heart size. No congestive change. OSSEOUS STRUCTURES: No significant abnormalities. VISUALIZED UPPER ABDOMEN: Normal. OTHER FINDINGS: None. IMPRESSION: No active disease.
[2017-08-16] MEDS: Vancomycin 1gm in NS 250ml 1 GM/250 ML BAG IVPB SCH ×2 (11:17→20:45)
--- NOTE | 2017-08-16 12:15 | CP.PCM.CON ---
History of Present Illness - History of Present Illness History of Present Illness: 41 year old male with PMH of aortic valve replacement in 2013 with aortic aneurysm repair (open heart surgery), S/P cervical neck fusion C3-C5, history of lyme disease, history of Strep pneumo bacteremia in March 2017 came in to [facility] complaining of right sided pain in the mouth and face, difficulty opening mouth and generalized body aches for the past 1-2 days. He denies eating anything out of the ordinary, no recent travel outside of [place] in the past 3 months, no animal contacts, no known sick contacts. He also denies headache or dizziness, no fever or chills, no nausea or vomiting, no chest pain, no SOB, no abdominal pain, no diarrhea, no dysuria, no sore throat, no cough or colds. Infectious Diseases consult is requested to further evaluate and manage. Review of Systems - Review of Systems All systems: reviewed and no additional remarkable complaints except (as per HPI ) Past Patient History - Infectious Disease Hx of Infectious Diseases: None - Past Social History Smoking Status: Light Smoker < 10 Cigarettes Daily - CARDIAC Hx Cardiac Disorders: Yes Hx Hypertension: Yes Other/Comment: Open Heart Surgery. Bicup. Aortic Valve Surgery - PULMONARY Hx Respiratory Disorders: No - NEUROLOGICAL Hx Neurological Disorder: Yes Other/Comment: pt had cervical neck fusion, neck still tingles, arms go numb, can't lie flat. Spine Fused C3 to C5 - HEENT Hx HEENT Problems: No - RENAL Hx Chronic Kidney Disease: No - ENDOCRINE/METABOLIC Hx Endocrine Disorders: No - HEMATOLOGICAL/ONCOLOGICAL Hx Blood Disorders: Yes Other/Comment: lyme disease 2x's over the past 3 years - INTEGUMENTARY Hx Dermatological Problems: No - MUSCULOSKELETAL/RHEUMATOLOGICAL Hx Musculoskeletal Disorders: Yes Hx Falls: Yes - GASTROINTESTINAL Hx Gastrointestinal Disorders: No - GENITOURINARY/GYNECOLOGICAL Hx Genitourinary Disorders: No - PSYCHIATRIC Hx Psychophysiologic Disorder: No Hx Emotional Abuse: No Hx Physical Abuse: No Hx Substance Use: No - SURGICAL HISTORY Hx Open Heart Surgery: Yes ([facility]) Hx Orthopedic Surgery: Yes (cervical neck fusion 05/2012) Hx Valve Replacement: Yes - ANESTHESIA Hx Anesthesia: Yes Meds Allergies/Adverse Reactions: Allergies Allergy/AdvReac Type Severity Reaction Status Date / Time meropenem [From Merrem] Allergy RASH Verified 08/15/17 18:25 metoclopramide HCl AdvReac SHORTNESS Verified 08/15/17 18:25 [From Reglan] OF BREATH Penicillins AdvReac ANAPHYLAXIS Verified 08/15/17 18:25 pregabalin [From Lyrica] AdvReac ITCHING Verified 08/15/17 18:25 valsartan [From Diovan] AdvReac SWELLING Verified 08/15/17 18:25 - Medications Medications: Current Medications Lisinopril (Zestril) 10 mg PO DAILY ZEE Oxycodone HCl (Oxycodone Immediate Release Tab) 30 mg PO QID PRN PRN Reason: Pain, moderate (4-7) Last Admin: 08/16/17 04:28 Dose: 30 mg Warfarin Sodium (Coumadin) 10 mg PO 1800 ZEE PRN Reason: Protocol Physical Exam - Constitutional Appears: Non-toxic - Head Exam Head Exam: NORMAL INSPECTION - ENT Exam Additional comments: unable to fully open mouth; tenderness noted on the right facial area - no open wound noted Results - Vital Signs Recent Vital Signs: Last Vital Signs Temp 98.7 F 08/16/17 08:34 Pulse 66 08/16/17 08:34 Resp 20 08/16/17 08:34 BP 147/74 08/16/17 08:34 Pulse Ox 97 08/16/17 08:34 - Labs Result Diagrams: 08/15/17 19:07 08/15/17 19:07 Labs: Laboratory Results - last 24 hr 08/15/17 08/15/17 20:31 20:37 Urine Opiates Screen Negative Urine Methadone Screen Negative Ur Barbiturates Screen Negative Ur Phencyclidine Scrn Negative Ur Amphetamines Screen Negative U Benzodiazepines Scrn Positive H U Oth Cocaine Metabols Negative U Cannabinoids Screen Negative Influenza Typ A,B (EIA) Negative for flu a/b Assessment & Plan - Assessment and Plan (Free Text) Plan: Assessment consider right sided dental abscess history of sepsis due to Strep pneumoniae bacteremia aortic valve replacement in 2013 with aortic aneurysm repair (open heart surgery ) S/P cervical neck fusion C3-C5 history of lyme disease Plan started patient on Vancomycin, Azactam and Flagyl pending CT of the face, blood cx will monitor clinically advised patient to alert nurse if patient develops itching, rash, difficulty breathing (had rash to merrem previously)
[2017-08-16] MEDS: Aztreonam 1 Gm in NS 100mL 100 ML IVPB SCH ×2 (14:15→22:47)
[2017-08-16] MEDS: metroNIDAZOLE IV 500 mg/100 ml 500 MG/100 ML BAG IVPB SCH ×2 (16:21→21:39)
--- NOTE | 2017-08-16 17:23 | US ---
HISTORY: Leg pain and swelling. Evaluate for DVT PHYSICIAN(S): Doyle Avelar MD. TECHNIQUE: Duplex sonography and color-flow Doppler with graded compression were used to evaluate the deep venous systems of both lower extremities. FINDINGS: The visualized deep venous systems of both lower extremities are sonographically normal and compressible. Normal wave forms and augmentation are seen. There is no sonographic evidence for deep venous thrombosis in the visualized segments of both lower extremities. IMPRESSION: No sonographic evidence for deep venous thrombosis in the visualized segments of both lower extremities.
--- NOTE | 2017-08-16 18:43 | CON ---
HISTORY OF PRESENT ILLNESS: The patient is a 41-year-old male who presented with diffuse body aches as well as dental abscess. 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 The patient denies chest pain. Denies shortness of breath. PAST MEDICAL HISTORY: Notable for hypertension. His past medical history also includes a history of lower back pain for which the patient has been on oxycodone. MEDICATIONS: The patient is on Coumadin. SOCIAL HISTORY: Denies smoking. REVIEW OF SYSTEM: A 14-point review of systems was reviewed. No cardiac symptoms were noted. PHYSICAL EXAMINATION: VITAL SIGNS: Blood pressure is 147/74, heart rate is normal sinus rhythm at 68. NECK: Negative JVD. LUNGS: Without rales. HEART: Reveals S1 and S2 with a 2/6 systolic ejection murmur with valvular clicks noted. EXTREMITIES: Without edema. IMAGING: EKG is normal sinus rhythm, unremarkable. LABORATORY DATA: Reveals troponins are negative x2. BUN and creatinine unremarkable. Hemoglobin is 14.1. The PT/INR is 2.33. IMPRESSION 1. Sepsis. 2. Dental abscess. 3. History of aortic valve replacement. 4. History of ascending aneurysm repair. 5. Hypertension. PLAN: Given these findings, the patient is currently on IV antibiotics. We will need to be careful of Coumadin and his INR given his doses of IV antibiotics. We will lower the Coumadin to 5 mg and check PT daily. Doyle Allen MD
--- NOTE | 2017-08-16 22:24 | CARD ---
APPROVED REPORT EKG Measurement Heart [id number] IN [id number] [id number] <Conclusion> Sinus bradycardia Possible Left atrial enlargement Anteroseptal infarct, age undetermined Abnormal ECG
--- NOTE | 2017-08-17 00:02 | HP ---
CHIEF COMPLAINT AND HISTORY OF PRESENT ILLNESS: This is a 41-year-old male who is coming into the hospital with complaints of right dental abscess. The patient had a past medical history of an aortic aneurysm and an open heart surgery with aortic valve replacement in 2013. He also has a significant chronic neck and back pain. He had a cervical neck fusion at C3-C5. He has a history of Lyme disease. The patient had Strep pneumo sepsis in the past. He states that he has been having generalized aches. He has been developing swelling in the right side of his face. He has not been able to see his dentist and the patient is on chronic narcotics for pain. He states he has no abdominal pain. No back pain. The patient has no headaches or dizziness. He has no fever. The patient has been complaining of chills according to the ER. He also has been having significant back pain. 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 He has no rashes on his body. He has no hematuria. He did complain of pain in the anterior part of the shins. REVIEW OF SYSTEMS: All other review of systems are within normal limits except as mentioned. PAST MEDICAL HISTORY: As above. SOCIAL HISTORY: He denies smoking or drinking. He had been disabled, but is now working again. He does smoke 3 to 4 cigarettes a day and states he has been trying to cut down. ALLERGIES: HE IS ALLERGIC TO METOCLOPRAMIDE, PENICILLIN, PREGABALIN, AND VALSARTAN. MEDICATIONS: Have been reviewed on the [facility]. He is on Coumadin. PHYSICAL EXAMINATION: VITAL SIGNS: He has a temperature of 98, pulse of 71, blood pressure of 133/74, and respirations of 18. GENERAL: The patient lying in bed, uncomfortable, and in no acute distress. HEENT: Atraumatic and normocephalic. Anicteric sclerae. Moist mucosa. Grayson conjunctivae. No oral lesions. Right facial swelling in the cheek area. NECK: No JVD, anterior and posterior adenopathy, thyromegaly, or bruits. CARDIOVASCULAR: There is a click. No additional murmurs have been heard. LUNGS: Clear to auscultation bilaterally. No wheezes, rales, or rhonchi. ABDOMEN: Bowel sounds are positive. Soft, nontender and nondistended. No hepatosplenomegaly. No rebound and no guarding. EXTREMITIES: No cyanosis, clubbing, or edema. NEUROLOGIC: No facial asymmetry. Tongue is midline. No uvula deviation. Power is 5/5 upper extremity and lower extremity. Sensation intact in upper extremity and lower extremity. PSYCHIATRIC: He is awake, alert and oriented x3. No anxiety or depression. He has normal affect. GENITOURINARY: No CVA tenderness. VASCULAR: 2+ pulses in the carotid pulses and pedal pulses. SKIN: No erythema or nodules. SPINE: Shows normal curvature. EXTREMITIES: No cyanosis and clubbing, no edema. LABORATORY DATA: His lower extremity Doppler show no evidence of DVT. Chest x-ray done shows no active disease. EKG shows sinus rhythm, no ST-T changes. ASSESSMENT: 1. Right upper molar dental abscess. 2. Aortic valve replacement. 3. Cervical neck fusion C3-C5. 4. Chronic back pain. 5. History of Lyme disease. 6. PENICILLIN ALLERGY. 7. MEROPENEM ALLERGY. PLAN: The patient is going to be admitted to the hospital. He has blood cultures and urine cultures have been done. The patient was given clindamycin in the ER. I have asked Dr. Chahal from [place] to evaluate the patient. The patient is also going to need vancomycin. The patient is going to continue with Zestril for hypertension. He is on Coumadin. His labs have been reviewed. His last INR was 3.2. He has a white count of 10.9 with 78% granulocytes. His troponin was negative. He has a C-reactive protein that is elevated to 15. His toxicology screen shows benzodiazepine that is positive. His influenza has been negative. Rest of the labs have been reviewed. The patient will continue his Coumadin. I have placed him back on his pain medications with oxycodone. The patient is going to have CAT scan done that was ordered by Dr. Chahal and Dr. 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 We will await for the culture results and the CAT scan to make further recommendations in the patient's care. Mikhail Frank MD
[2017-08-17] MEDS: oxyCODONE 30 mg Immediate Release Tab PO PRN ×4 (03:12→20:12)
[2017-08-17] MEDS: Aztreonam 1 Gm in NS 100mL 100 ML IVPB SCH ×3 (05:08→21:52)
[2017-08-17] MEDS: metroNIDAZOLE IV 500 mg/100 ml 500 MG/100 ML BAG IVPB SCH ×3 (05:08→21:56)
[2017-08-17] MEDS ORDERED: Iohexol 350 MG/100 ML VIAL ONE (08:06)
--- NOTE | 2017-08-17 08:42 | PN ---
DATE: 08/17/2017 SUBJECTIVE: The patient has no complaints of any chest pain or shortness of breath. No headaches or dizziness. PHYSICAL EXAMINATION VITAL SIGNS: Temperature is 98, pulse is 52, blood pressure is 133/74, and respirations are 18. GENERAL: The patient is lying in bed, flat, comfortable. HEENT: No oral lesion. Anicteric sclerae. Moist mucosa. NECK: No JVD, adenopathy, or thyromegaly. CARDIOVASCULAR: S1 and S2, regular. No murmurs, rubs, or gallops. LUNGS: Clear to auscultation bilaterally. No wheeze, rales, or rhonchi. ABDOMEN: Bowel sounds are positive, soft, nontender and nondistended. EXTREMITIES: No cyanosis, clubbing or edema. ASSESSMENT: 1. Right dermal dental abscess. 2. Aortic valve replacement, on anticoagulation. 3. History of cervical neck fusion C3 to C5. 4. Chronic back pain. 5. Penicillin allergy. 6. Meropenem allergy. PLAN: The patient is currently comfortable. His pain is controlled with his pain medications. The patient's blood cultures have been negative. He is receiving aztreonam and vancomycin for his antibiotics. He is on Coumadin for his anticoagulation. His INR is therapeutic at 2.2. He is on oxycodone for his pain. He is receiving Zestril for hypertension. He has maxillofacial CAT scan that has been ordered and is pending. He is on heart-healthy diet. He has not had any fevers. We will await CAT scan results to further input from the specialist. There is no dentist on-call that I can ask for consultation. The patient does have a dentist and will follow up as an outpatient on discharge. Mikhail Frank MD
[2017-08-17] MEDS: Vancomycin 1gm in NS 250ml 1 GM/250 ML BAG IVPB SCH ×2 (09:33→21:59)
--- NOTE | 2017-08-17 10:23 | CT ---
PROCEDURE: CT MAXILLOFACIAL BONES WITH CONTRAST HISTORY: rule out dental abscess COMPARISON: None. TECHNIQUE: Contiguous axial CT images of the maxillofacial bones were obtained following administration of IV contrast. Coronal and sagittal reformats were generated. Intravenous contrast Dose: 100 cc of Omni 350 Radiation dose: Total exam DLP = 1088 mGy-cm. This CT exam was performed using one or more of the following dose reduction techniques: Automated exposure control, adjustment of the mA and/or kV according to patient size, and/or use of iterative reconstruction technique. FINDINGS: NASAL BONES: Unremarkable. ORBITS: Unremarkable. PARANASAL SINUSES/ MASTOIDS: Clear. MAXILLA: There is some dental disease in the posterior alveolar ridge right greater than left. There are some periapical lucencies and cortical dehiscence on the right. This can be seen on image 78 series 2. There is also some bony erosion or destruction along the posterior border of the alveolar ridge on the right image 84. There is no associated soft tissue abscess. The findings can also be seen on coronal image 41. MANDIBLE/ TEMPOROMANDIBULAR JOINTS: Unremarkable. SKULL BASE: Unremarkable. TEMPORAL BONES: Middle ears and mastoid grossly unremarkable. OTHER FINDINGS: None. IMPRESSION: Dental lucencies in the alveolar ridge of the maxilla on the right with some bony erosion of the posterior cortex. There is no evidence of a discrete soft tissue abscess.
--- NOTE | 2017-08-17 12:42 | CP.PCM.PN ---
Subjective - Date & Time of Evaluation Date of Evaluation: 08/17/17 Time of Evaluation: 10:55 - Subjective Subjective: Less pain in the right facial area, no fevers overnight, tolerating antibiotics without issues. Objective - Vital Signs/Intake and Output Vital Signs (last 24 hours): Temp Pulse Resp BP Pulse Ox 98.1 F 70 20 149/79 97 08/17/17 08:06 08/17/17 08:06 08/17/17 08:06 08/17/17 08:06 08/17/17 08:06 Intake and Output: 08/17/17 08/17/17 06:59 18:59 Intake Total 1840 0 Balance 1840 0 - Medications Medications: Current Medications Aztreonam (Azactam 1 Gm) 100 mls @ 100 mls/hr IVPB Q8 ZEE PRN Reason: Protocol Stop: 08/23/17 14:01 Last Admin: 08/17/17 05:08 Dose: 100 mls/hr Metronidazole (Flagyl) 500 mg in 100 mls @ 100 mls/hr IVPB Q8 ZEE PRN Reason: Protocol Last Admin: 08/17/17 05:08 Dose: 100 mls/hr Vancomycin HCl (Vancomycin 1gm) 1 gm in 250 mls @ 167 mls/hr IVPB Q12H ZEE PRN Reason: Protocol Last Admin: 08/16/17 20:45 Dose: 167 mls/hr Lisinopril (Zestril) 10 mg PO DAILY [facility] Last Admin: 08/16/17 11:21 Dose: 10 mg Oxycodone HCl (Oxycodone Immediate Release Tab) 30 mg PO QID PRN PRN Reason: Pain, moderate (4-7) Last Admin: 08/17/17 03:12 Dose: 30 mg Warfarin Sodium (Coumadin) 5 mg PO 1800 ZEE PRN Reason: Protocol Last Admin: 08/16/17 18:11 Dose: 5 mg - Labs Labs: PT 24.7 SECONDS (9.4-12.5) H 08/15/17 19:07 INR 2.23 (0.93-1.08) H 08/15/17 19:07 APTT 40.9 Seconds (25.1-36.5) H 08/15/17 19:07 - Constitutional Appears: Non-toxic, No Acute Distress - Head Exam Head Exam: NORMAL INSPECTION - ENT Exam Additional comments: swelling on the right side of the face - Neck Exam Neck Exam: absent: Lymphadenopathy, Meningismus - Respiratory Exam Respiratory Exam: Decreased Breath Sounds - Cardiovascular Exam Cardiovascular Exam: +S1, +S2 - GI/Abdominal Exam GI & Abdominal Exam: Soft. absent: Tenderness Assessment and Plan - Assessment and Plan (Free Text) Plan: Assessment consider right sided dental abscess history of sepsis due to Strep pneumoniae bacteremia aortic valve replacement in 2013 with aortic aneurysm repair (open heart surgery ) S/P cervical neck fusion C3-C5 history of lyme disease Plan started patient on Vancomycin, Azactam and Flagyl day 2 pending results of the maxillofacial CT; blood cx are negative will continue to monitor clinically
[2017-08-17 13:11] LABS: INR 2.4 (0.93-1.08)
--- NOTE | 2017-08-17 19:37 | PN ---
CARDIOLOGY FOLLOWUP DATE: 08/17/2017 SUBJECTIVE: The patient is feeling much better on IV antibiotics. PHYSICAL EXAMINATION: VITAL SIGNS: The patient is afebrile, blood pressure is 149/80, and the heart rate is in the 70s. NECK: Negative JVD. LUNGS: Without rales. HEART: S1 and S2. EXTREMITIES: Without edema. LABORATORY DATA: The microbiology shows negative growth in blood culture so far. IMPRESSION: 1. Dental abscess. 2. History of aortic valve replacement. 3. History of ascending aorta repair. 4. Sepsis. PLAN: Given these findings, the patient's cardiac status is stable. There is no evidence of bacteremia. We will need to watch his INR carefully given his antibiotics and his Coumadin. We will order PT stat today. We will discontinue telemetry. Doyle Allen MD
[2017-08-18] MEDS: oxyCODONE 30 mg Immediate Release Tab PO PRN ×2 (02:15→09:14)
[2017-08-18] MEDS: Aztreonam 1 Gm in NS 100mL 100 ML IVPB SCH (05:31)
[2017-08-18] MEDS: metroNIDAZOLE IV 500 mg/100 ml 500 MG/100 ML BAG IVPB SCH (05:32)
[2017-08-18 07:23] VITALS: BP 133/69; PULSE 67; RESP 20; TEMP 98.8; O2SAT 97
[2017-08-18] MEDS: Vancomycin 1gm in NS 250ml 1 GM/250 ML BAG IVPB SCH (09:49)
--- NOTE | 2017-08-18 13:24 | CP.PCM.PN ---
Subjective - Date & Time of Evaluation Date of Evaluation: 08/18/17 Time of Evaluation: 10:25 - Subjective Subjective: Patient is feeling better, no fevers, less swelling and pain on the right side of the face. Objective - Vital Signs/Intake and Output Vital Signs (last 24 hours): Temp Pulse Resp BP Pulse Ox 98.8 F 67 20 133/69 97 08/18/17 07:00 08/18/17 07:00 08/18/17 07:00 08/18/17 07:00 08/18/17 07:00 Intake and Output: 08/18/17 08/18/17 06:59 18:59 Intake Total 1820 Balance 1820 - Medications Medications: Current Medications Aztreonam (Azactam 1 Gm) 100 mls @ 100 mls/hr IVPB Q8 ZEE PRN Reason: Protocol Stop: 08/23/17 14:01 Last Admin: 08/18/17 05:31 Dose: 100 mls/hr Metronidazole (Flagyl) 500 mg in 100 mls @ 100 mls/hr IVPB Q8 ZEE PRN Reason: Protocol Last Admin: 08/18/17 05:32 Dose: 100 mls/hr Vancomycin HCl (Vancomycin 1gm) 1 gm in 250 mls @ 167 mls/hr IVPB Q12H ZEE PRN Reason: Protocol Last Admin: 08/17/17 21:59 Dose: 167 mls/hr Lisinopril (Zestril) 10 mg PO DAILY [facility] Last Admin: 08/17/17 09:32 Dose: 10 mg Oxycodone HCl (Oxycodone Immediate Release Tab) 30 mg PO QID PRN PRN Reason: Pain, moderate (4-7) Last Admin: 08/18/17 09:14 Dose: 30 mg Warfarin Sodium (Coumadin) 5 mg PO 1800 ZEE PRN Reason: Protocol Last Admin: 08/17/17 17:35 Dose: 5 mg - Labs Labs: PT 26.9 SECONDS (9.4-12.5) H 08/17/17 12:30 INR 2.40 (0.93-1.08) H 08/17/17 12:30 APTT 40.9 Seconds (25.1-36.5) H 08/15/17 19:07 - Constitutional Appears: Non-toxic, No Acute Distress - Head Exam Head Exam: NORMAL INSPECTION - ENT Exam Additional comments: decreased swelling on the right side of the face - Neck Exam Neck Exam: absent: Meningismus - Respiratory Exam Respiratory Exam: Decreased Breath Sounds - Cardiovascular Exam Cardiovascular Exam: +S1, +S2 - GI/Abdominal Exam GI & Abdominal Exam: Soft. absent: Tenderness Assessment and Plan - Assessment and Plan (Free Text) Plan: Assessment consider right sided odontogenic infection, clinically improving history of sepsis due to Strep pneumoniae bacteremia aortic valve replacement in 2013 with aortic aneurysm repair (open heart surgery ) S/P cervical neck fusion C3-C5 history of lyme disease Plan on Vancomycin, Azactam and Flagyl day 3; reviewed maxillofacial CT - no specific abscess noted; blood cx are negative as discussed with Dr. Nelson, can switch patient to PO Avelox or PO levaquin and Flagyl for another 7 days with outpatient follow up with his dentist
--- NOTE | 2017-08-19 20:36 | DS ---
HISTORY OF PRESENT ILLNESS: This is a 41-year-old male who had come to the hospital with a right molar dental abscess. The patient was started on IV antibiotics. He had a CAT scan of the maxillofacial bones. It did not show any significant abscess in the deep tissue. His swelling in the right cheek improved. He had no fevers or chills. He is afebrile. His blood cultures and urine cultures were negative. The patient had his IV antibiotics switched over to p.o. He was seen by Cardiology and Infectious Diseases. The patient was discharged home to follow up as an outpatient. PHYSICAL EXAMINATION: VITAL SIGNS: Temperature is 98.8, pulse of 67, blood pressure is 133/69, respirations 20, and O2 saturation 97%. GENERAL: The patient is lying in bed, flat, comfortable. HEENT: No oral lesion. Anicteric sclerae. Moist mucosa. NECK: No JVD, adenopathy, or thyromegaly. CARDIOVASCULAR: S1 and S2, regular. No murmurs, rubs, or gallops. LUNGS: Clear to auscultation bilaterally. No wheeze, rales, or rhonchi. ABDOMEN: Bowel sounds are positive, soft, nontender and nondistended. EXTREMITIES: no cyanosis, clubbing or edema. ASSESSMENT: 1. Right molar dental abscess. 2. Aortic valve replacement, on anticoagulation. 3. History of cervical neck fusion, C3 to C5. 4. Chronic back pain. 5. PENICILLIN ALLERGY. 6. MEROPENEM ALLERGY. PLAN: The patient had been on aztreonam and vancomycin. He is on Zestril for his hypertension. He is going to follow up with his dentist as an outpatient. I did give him *------* as this is his monthly dosage. He was also referred to Psychiatry/Counseling for addiction. He does have chronic back issues. 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 He said he has no *------* because he needed income for his family. CONDITION: Stable. ACTIVITIES: Increase as tolerated. Mikhail Frank, MDDD: 08/18/2017 21:54:32 Job # [id number]
== END 2017-08-18 15:39 | disposition home or self-care (01) | DRG 159 ==
LOC: ED 18:23 → ERH 20:10 → 3RNO 23:50 → OBSVTOIN 08-17 16:18
PROVIDERS: ADMIT Internal Medicine Nephrology; ATTEND Internal Medicine Nephrology
DX: K04.7 Periapical abscess without sinus (principal); I10 Essential (primary) hypertension; M54.5 Low back pain; M54.2 Cervicalgia; G89.29 Other chronic pain; F17.210 Nicotine dependence, cigarettes, uncomplicated; Z88.1 Allergy status to other antibiotic agents; Z88.0 Allergy status to penicillin; Z98.1 Arthrodesis status; Z86.19 Personal history of other infectious and parasitic diseases; Z79.01 Long term (current) use of anticoagulants; Z95.2 Presence of prosthetic heart valve